=== PATIENT | male | born 1960 | race American Indian/Alaskan Native ===

== ENCOUNTER 2016-12-19 08:26 | Inpatient (IN) | payer MEDICAID ==
[2016-12-19 08:29] VITALS: BMI 28.1
[2016-12-19] MEDS ORDERED: Famotidine 20mg/50ml 50 ML IVPB STA (09:25)
[2016-12-19 09:43] LABS: ADD MANUAL DIFF? NO
[2016-12-19 09:46] LABS: BASO # 0.11 K/mm3 (0.0-2.0); BASO % 2.8 % (0.0-3.0); EOS # 0.1 (0.0-0.7); EOS % 2.8 % (1.5-5.0); GRAN # 1.43 (1.4-6.5); GRAN % 36.1 % (50.0-68.0); LYMPH # 1.8 (1.2-3.4); LYMPH % 45.1 % (22.0-35.0); MEAN CELL VOLUME 62.1 fL (80.0-105.0); MEAN PLATELET VOLUME 8.6 fl (7.0-11.0); MONO # 0.5 (0.1-0.6); MONO % 13.2 % (1.0-6.0); PLATELET COUNT 337 10^3/uL (120.0-450.0)
--- NOTE | 2016-12-19 09:46 | RAD ---
HISTORY: chest pain COMPARISON: No prior. FINDINGS: LUNGS: No active pulmonary disease. PLEURA: No significant pleural effusion identified, no pneumothorax apparent. CARDIOVASCULAR: Normal. OSSEOUS STRUCTURES: No significant abnormalities. VISUALIZED UPPER ABDOMEN: Normal. OTHER FINDINGS: None. IMPRESSION: No active disease.
[2016-12-19 09:55] LABS: HEMATOCRIT 22.1 % (42.0-52.0); INR 1.07 (0.93-1.08); PARTIAL THROMBOPLASTIN TIME 40.1 Seconds (23.7-30.8)
[2016-12-19 09:57] LABS: ALB/GLOB RATIO 1.1 (1.1-1.8); ALKALINE PHOSPHATASE 99 U/L (38-133); ALT/SGPT 43 U/L (7-56); AST/SGOT 52 U/L (15-59); BILIRUBIN,TOTAL 0.6 mg/dL (0.2-1.3); BLOOD UREA NITROGEN 12 mg/dL (7-21); CALCIUM 8.7 mg/dL (8.4-10.5); CARBON DIOXIDE 24 mmol/L (21-33); CHLORIDE 103 mmol/L (98-107); GFR AFRICAN-AMERICAN > 60; GLUCOSE,RANDOM 88 mg/dL (70-110); LIPASE 84 U/L (23-300); MAGNESIUM 1.9 mg/dL (1.7-2.2); POTASSIUM 4.1 mmol/L (3.6-5.0); SODIUM 137 mmol/L (132-148); TOTAL PROTEIN 7.9 g/dL (5.8-8.3)
[2016-12-19 10:09] LABS: TROPONIN I < 0.01 ng/mL
[2016-12-19 10:16] LABS: PH,URINE 6.5 (4.7-8.0); URINE APPEARANCE CLEAR (CLEAR); URINE BILIRUBIN NEGATIVE (NEGATIVE); URINE BLOOD NEGATIVE (NEGATIVE); URINE COLOR YELLOW (YELLOW); URINE GLUCOSE (UA) NEGATIVE (NEGATIVE); URINE KETONE NEGATIVE (NEGATIVE); URINE LEUKOCYTE ESTERASE NEGATIVE Leu/uL (NEGATIVE); URINE PROTEIN NEGATIVE mg/dL (<30 mg/dL); URINE UROBILINOGEN 0.2 E.U./dL (<1 E.U./dL)
--- NOTE | 2016-12-19 11:40 | ED PDOC ---
Arrival/HPI - General Chief Complaint: Chest Pain Time Seen by Provider: 12/19/16 08:47 Historian: Patient - History of Present Illness Narrative History of Present Illness (Text): 12/19/16 11:36 Tu Mendez is a 56 year old male, with a history of hypertension, hyperlipidemia and anemia, presents to the emergency department via ambulance complaining of 1 day duration of chest pressure and heart-burn sensation. En route, patient was given Aspirin and nitroglycerin which improved his symptoms. He also complains of mild nausea, denies vomiting or diarrhea. Denies any shortness of breath. Denies fevr, chills, headache, dizziness, urinary symptoms , or any other complaints at this time. Time/Duration: 24 hours Symptom Onset: Gradual Symptom Course: Unchanged Severity Level: Mild Activities at Onset: Light Past Medical History - Provider Review Nursing Documentation Reviewed: Yes - Cardiac Hx Cardiac Disorders: Yes - Hematological/Oncological Hx Anemia: Yes - Psychiatric Hx Substance Use: No Family/Social History - Physician Review Nursing Documentation Reviewed: Yes Family/Social History: No Known Family HX Smoking Status: Light Smoker < 10 Cigarettes Daily Hx Alcohol Use: Yes Frequency of alcohol use: Socially Hx Substance Use: No Allergies/Home Meds Allergies/Adverse Reactions: Allergies No Known Allergies Allergy (Verified 12/19/16 11:36) Home Medications: Home Meds Medication Instructions Recorded Confirmed Acetaminophen/Oxycodone Hydr 1 tab PO Q6H 12/19/16 12/19/16 [Percocet 10/325 mg Tab] Aspirin [Ecotrin] 81 mg PO DAILY 12/19/16 12/19/16 amLODIPine [Norvasc] 10 mg PO DAILY 12/19/16 12/19/16 Review of Systems - Physician Review All systems were reviewed & negative as marked: Yes - Review of Systems Constitutional: Normal. absent: Fatigue, Fevers Respiratory: absent: SOB, Cough, Sputum Cardiovascular: Chest Pain Gastrointestinal: Normal. absent: Abdominal Pain, Diarrhea, Nausea, Vomiting Neurological: Normal. absent: Headache, Dizziness Psychiatric: Normal Physical Exam Vital Signs Reviewed: Yes Vital Signs Temp Pulse Resp BP Pulse Ox 12/19/16 10:00 68 16 139/77 99 12/19/16 08:30 98.1 F 76 18 130/63 99 Temperature: Afebrile Blood Pressure: Normal Pulse: Regular Respiratory Rate: Normal Appearance: Positive for: Well-Appearing, Non-Toxic, Comfortable Pain Distress: None Mental Status: Positive for: Alert and Oriented X 3 - Systems Exam Head: Present: Atraumatic, Normocephalic Pupils: Present: PERRL Conjunctiva: Present: Normal Respiratory/Chest: Present: Clear to Auscultation, Good Air Exchange. No: Respiratory Distress, Accessory Muscle Use Cardiovascular: Present: Normal S1, S2. No: Murmurs Abdomen: Present: Tenderness (epigastric tenderness ), Normal Bowel Sounds. No : Distention, Peritoneal Signs, Rebound, Guarding Neurological: Present: GCS=15, CN II-XII Intact, Speech Normal Skin: Present: Warm, Dry, Normal Color. No: Rashes Psychiatric: Present: Alert, Oriented x 3, Normal Insight, Normal Concentration Medical Decision Making ED Course and Treatment: 12/19/16 11:41 Impression: A 56 year old male who presents to the emergency department complaining of chest pressure for past day. Differential Diagnosis include but are not limited to: Chest pain: r/o ACS vs. GERD. vs. worsening anemia. Plan: -- EKG -- Labs, cardiac enzymes -- Pepcid -- Urinalysis -- Reassess and disposition Progress Notes: 12/19/16 11:44 Hbg low. Patient signed consent for transfusion and witnessed by RN. Case discussed with Dr. Huang, hospitalist, who agrees with the plan to admit patient to hospital for transfusion. Rectal exam performed by the medical receptionist biller, which was guaiac positive. Blood transfusion consent was obtained by me and co-signed by RN. Will order 2 units. - Critical Care Critical Care Minutes: 30 minutes - Lab Interpretations Lab Results: 12/19/16 09:41 12/19/16 09:41 Lab Results 12/19/16 10:50: Blood Type Confirm O POSITIVE 12/19/16 10:29: Blood Type O POSITIVE, Antibody Screen Positive, Antibody Identification Anti S, Antigen Identification S Antigen - NEGATIVE, Crossmatch See Detail, BBK History Checked No verified bt 12/19/16 09:41: WBC 4.0 L, RBC 3.56, Hgb 6.4 L*, Hct 22.1 L, MCV 62.1 L, MCH 18.0 L, MCHC 29.0 L, RDW 17.0 H, Plt Count 337, MPV 8.6, Gran % 36.1 L, Lymph % (Auto) 45.1 H, Faulk % (Auto) 13.2 H, Eos % (Auto) 2.8, Baso % (Auto) 2.8, Gran # 1.43, Lymph # 1.8, Faulk # 0.5, Eos # 0.1, Baso # 0.11, PT 11.6, INR 1.07, APTT 40.1 H, Sodium 137, Potassium 4.1, Chloride 103, Carbon Dioxide 24, Anion Gap 14, BUN 12, Creatinine 1.1, Est GFR ( Amer) > 60, Est GFR (Non-Af Amer) > 60, Random Glucose 88, Calcium 8.7, Magnesium 1.9, Total Bilirubin 0.6, AST 52, ALT 43, Alkaline Phosphatase 99, Lactate Dehydrogenase 582, Total Creatine Kinase 302 H, CK-MB (CK-2) 1.1, CK-MB (CK-2) % Cancelled, Troponin I < 0.01, Total Protein 7.9, Albumin 4.2, Globulin 3.7, Albumin/Globulin Ratio 1.1, Lipase 84 12/19/16 09:25: Urine Color Yellow, Urine Appearance Clear, Urine pH 6.5, Ur Specific [place] 1.010, Urine Protein Negative, Urine Glucose (UA) Negative, Urine Ketones Negative, Urine Blood Negative, Urine Nitrate Negative, Urine Bilirubin Negative, Urine Urobilinogen 0.2, Ur Leukocyte Esterase Negative Interpretation: Abnormal lab values - RAD Interpretation Radiology Orders: 12/19/16 09:25 CHEST PORTABLE [RAD] Stat - Medication Orders Current Medication Orders: Sodium Chloride (Sodium Chloride 0.9%) 1,000 mls @ 100 mls/hr IV .Q10H OVI Last Admin: 12/19/16 13:00 Dose: 100 MLS/HR eMAR Start Stop Document 12/19/16 13:00 MM (Rec: 12/19/16 15:32 MM [id number]) Intravenous Solution Start Date 12/19/16 Start Time 13:30 End Date 12/20/16 End time 13:30 Total Infusion Time 1440 Lorazepam (Ativan) 1 mg IVP Q4 PRN; Protocol PRN Reason: Anxiety Ondansetron HCl (Zofran Inj) 4 mg IVP Q4H PRN PRN Reason: Nausea/Vomiting Pantoprazole Sodium (Protonix Inj) 40 mg IVP DAILY OVI Last Admin: 12/19/16 14:12 Dose: 40 MG IVP Administration Document 12/19/16 14:12 MM (Rec: 12/19/16 14:13 MM [id number]) Charges for Administration # of IVP Administrations 1 Discontinued Medications Barium Sulfate (Readi-Cat 2) Confirm Administered Dose 900 ml PO .STK-MED ONE Stop: 12/19/16 11:45 Famotidine (Pepcid 20mg/50ml Premix) 50 mls @ 100 mls/hr IVPB STAT STA Stop: 12/19/16 09:54 Last Admin: 12/19/16 09:36 Dose: 100 MLS/HR eMAR Start Stop Document 12/19/16 09:36 SZA (Rec: 12/19/16 09:37 SZA [id number]) Intravenous Solution Start Date 12/19/16 Start Time 09:36 End Date 12/19/16 End time 09:58 Total Infusion Time 22 Iohexol (Omnipaque 350 100 Ml) Confirm Administered Dose 350 mg .ROUTE .STK-MED ONE Stop: 12/19/16 13:21 Pneumococcal Polyvalent Vaccine (Pneumovax 23 Vaccine) 0.5 ml IM .ONCE ONE Stop: 12/19/16 13:35 Last Admin: 12/19/16 13:34 Dose: MAR Immunization Data Document 12/19/16 13:34 MM (Rec: 12/19/16 15:30 MM [id number]) Immunization Data Vaccine Eligibility Yes - Scribe Statement The provider has reviewed the documentation as recorded by the Bobby Maynard Provider Attestation: All medical record entries made by the Massimoibalonzo were at my direction and personally dictated by me. I have reviewed the chart and agree that the record accurately reflects my personal performance of the history, physical exam, medical decision making, and the department course for this patient. I have also personally directed, reviewed, and agree with the discharge instructions and disposition. Disposition/Present on Arrival - Present on Arrival Any Indicators Present on Arrival: No History of DVT/PE: No History of Uncontrolled Diabetes: No Urinary Catheter: No History of Decub. Ulcer: No History Surgical Site Infection Following: None - Disposition Have Diagnosis and Disposition been Completed?: Yes Diagnosis: Secondary anemia Disposition: HOSPITALIZED Disposition Time: 11:20 Patient Plan: Admission Condition: FAIR
[2016-12-19] MEDS ORDERED: Barium Sulfate Susp 2.1% w/v, 2.0% w/w 450 mL Bottle PO ONE (11:44)
--- NOTE | 2016-12-19 12:36 | CP.PCM.HP ---
<Chris Felton - Last Filed: 12/19/16 14:35> History of Present Illness - History of Present Illness History of Present Illness: CC: Chest pain HPI: Patient is a 56 y/o male with a past medical hx of HTN, hemorrhoids, anemia, hyperlipidemia, cocaine, and alcohol abuse who presents to the ED with complaint of chest pain and fatigue. He states he was on his way home early this morning and developed chest pressure and a burning sensation. He reports sitting on a bench and asking a woman to call 911. He was given Aspiring and nitroglycerine in the ambulance which alleviated his symptoms. Per patient, he has had similar symptoms in the past and he [place] [facility] [place] found [place] to be an[place]. He is a poor historian as he cannot say if he was there 3 months ago or 3 years ago. He says it was somewhere in between. He claims to have had a colonoscopy and told he has hemorrhoids and would need surgical resection; however, he did not follow up after discharge. He reports seeing his primary care physician recently but cannot say when. He states he was put on a blood thinner starting with an "L" and takes Percocet for chronic leg pain. He does report drinking alcohol last night and taking cocaine. He currently denies any fever, chills, headache, dizziness, urinary symptoms, rectal bleeding, hematemesis, or easy bleeding. He notes having dark stool for months/years. PMD: Dr. Marie Past medical hx: HTN, hemorrhoids, anemia, hyperlipidemia, cocaine, and alcohol abuse Past surgical hx: none Family hx: DM, HTN, CAD Social hx: admits to tobacco, alcohol, and cocaine abuse Allergies: NKDA Medications: Norvasc, Aspirin, and Percocet Present on Admission - Present on Admission Any Indicators Present on Admission: No Review of Systems - Constitutional Constitutional: absent: Chills, Fever, Headache - EENT Eyes: absent: Change in Vision Nose/Mouth/Throat: absent: Dysphagia, Mouth Pain - Cardiovascular Cardiovascular: absent: Chest Pain, Dyspnea, Edema - Respiratory Respiratory: absent: Cough, Dyspnea - Gastrointestinal Gastrointestinal: absent: Cramping, Diarrhea, Hematemesis, Hematochezia, Melena , Nausea, Vomiting - Genitourinary Genitourinary: absent: Dysuria, Pyuria - Musculoskeletal Musculoskeletal: absent: Numbness - Integumentary Integumentary: absent: Pruritus, Rash, Skin Pain, Wounds - Neurological Neurological: Radicular Pain (chronic leg pain). absent: Numbness, Tingling, Weakness - Psychiatric Psychiatric: absent: Anxiety, Depression Past Patient History - Infectious Disease Hx of Infectious Diseases: None - Tetanus Immunizations Tetanus Immunization: Unknown - Past Medical History & Family History Past Medical History?: Yes - Past Social History Smoking Status: Light Smoker < 10 Cigarettes Daily Alcohol: > 2 Drinks/Day Drugs: Cocaine Home Situation {Lives}: Alone - CARDIAC Hx Cardiac Disorders: Yes - HEMATOLOGICAL/ONCOLOGICAL Hx Anemia: Yes - PSYCHIATRIC Hx Substance Use: No - SURGICAL HISTORY Hx Surgeries: No Meds Allergies/Adverse Reactions: Allergies Allergy/AdvReac Type Severity Reaction Status Date / Time No Known Allergies Allergy Verified 12/19/16 11:36 Physical Exam - Constitutional Appears: Non-toxic, No Acute Distress - Head Exam Head Exam: NORMOCEPHALIC - Eye Exam Eye Exam: EOMI, Normal appearance, PERRL Pupil Exam: NORMAL ACCOMODATION, PERRL - ENT Exam ENT Exam: Mucous Membranes Moist. absent: Normal Oropharynx (poor dentition) - Neck Exam Neck exam: Positive for: Normal Inspection. Negative for: Lymphadenopathy, Tenderness, Thyromegaly - Respiratory Exam Respiratory Exam: Clear to Auscultation Bilateral, NORMAL BREATHING PATTERN. absent: Rales, Rhonchi, Wheezes - Cardiovascular Exam Cardiovascular Exam: REGULAR RHYTHM, +S1, +S2. absent: Gallop, Rubs, Systolic Murmur - GI/Abdominal Exam GI & Abdominal Exam: Normal Bowel Sounds, Soft. absent: Distended, Tenderness - Rectal Exam Rectal Exam: Black Stool, Hemorrhoids (internal and external at 3 and 9 o clock ). absent: Bloody Stool - Extremities Exam Extremities exam: Positive for: normal capillary refill, normal inspection, pedal pulses present. Negative for: pedal edema, tenderness - Back Exam Back exam: NORMAL INSPECTION. absent: rash noted, tenderness - Neurological Exam Neurological exam: Alert, CN II-XII Intact, Oriented x3 - Psychiatric Exam Psychiatric exam: Anxious - Skin Skin Exam: Dry, Intact, Warm Results - Vital Signs Recent Vital Signs: Last Vital Signs Temp 98.1 F 12/19/16 08:30 Pulse 68 12/19/16 11:31 Resp 16 12/19/16 11:31 BP 142/61 12/19/16 11:31 Pulse Ox 99 12/19/16 11:31 - Labs Result Diagrams: 12/19/16 09:41 12/19/16 09:41 Assessment & Plan - Assessment and Plan (Free Text) Assessment: Patient is a 56 y/o AA M with past medical hx of HTN, hemorrhoids, anemia, hyperlipidemia, cocaine, and alcohol abuse, who presents with chest pain/ burning and anemia with hemoglobin of 6.4. Pharmacy contacted and medications confirmed. Callout to PCP, awaiting response. Plan: 1) Chest pain r/o ACS * Cardiology consulted, help appreciated * EKG normal sinus with flattened T waves * Initial cardiac enzymes negative, F/U repeat * F/U free T4 and TSH * F/u Lipid panel * Chest x-ray shows no active disease 2) Anemia * Hgb 6.4 and HCT of 22.1 * Consent for blood products given * Transfuse 2 unites PRBC * F/U Hgb and Hct in A/M * Stool positive for occult blood * GI consulted, help appreciated * CT Abd and pelvis w PO and IV contrast * F/U Iron studies * Keep NPO for possible colonoscopy/EGD 3) HLD * F/U Lipid panel 4) HTN * BP stable * Hold Norvasc 5) Drug Abuse * F/U UDS * F/U alcohol level * monitor for withdrawal symptoms CIWA * Seizure precautions * Ativan for withdrawals * counselled on cessation 6) PPX * protnoix * zofran * anticoagulation contraindicated due to low hgb <Hossein Huang - Last Filed: 12/19/16 17:00> Results - Vital Signs Recent Vital Signs: Last Vital Signs Temp 98 F 12/19/16 16:45 Pulse 68 12/19/16 16:45 Resp 16 12/19/16 16:45 BP 151/67 H 12/19/16 16:45 Pulse Ox 99 12/19/16 11:31 - Labs Result Diagrams: 12/19/16 09:41 12/19/16 09:41 Labs: Laboratory Results - last 24 hr 12/19/16 12/19/16 14:00 15:50 Iron < 10 L TIBC 496 H % Saturation 2 L Lactate Dehydrogenase 540 Total Creatine Kinase 307 H Stool Occult Blood Positive H Alcohol, Quantitative < 10 Assessment & Plan - Assessment and Plan (Free Text) Assessment: attending note; patient seen and examined with resident in ER. Patient is alert, awake and oriented. Patient is a very poor historian. Patient is a 56 y/o AAM with past medical hx of HTN, hemorrhoids, anemia, hyperlipidemia, h/o blood Transfusion in the past, cocaine, and alcohol abuse, who presents with chest pain/burning and anemia with hemoglobin of 6.4. stool guiac positive. 2 units PRBC transfusion ordered. Apical chest pain: CE negative. cardiology evaluation requested. CT abdomen and pelvis is negative. Case discussed with GI in detail. History of [place] [facility] [place]. showed only hemorrhoids as per Patient. NO egd done. upon discharge the patient will follow-up with PMD DR. Marie. Attending/Attestation - Attestation I have personally seen and examined this patient.: Yes I have fully participated in the care of the patient.: Yes I have reviewed all pertinent clinical information: Yes
[2016-12-19] MEDS: Sodium Chloride 0.9% 1,000 ML IV SCH (13:00)
[2016-12-19] MEDS ORDERED: Iohexol 350 MG/100 ML VIAL ONE (13:20)
[2016-12-19] MEDS ORDERED: Pneumococcal 23-Valent Vaccine IM ONE (13:34)
--- NOTE | 2016-12-19 14:55 | CT ---
PROCEDURE: CT Abdomen and Pelvis with contrast HISTORY: GI bleed COMPARISON: None. TECHNIQUE: Contrast dose: 100 cc of Omni 350 Radiation dose: Total exam DLP = 402 mGy-cm. This CT exam was performed using one or more of the following dose reduction techniques: Automated exposure control, adjustment of the mA and/or kV according to patient size, and/or use of iterative reconstruction technique. FINDINGS: LOWER THORAX: Unremarkable. LIVER: Unremarkable. No gross lesion or ductal dilatation. GALLBLADDER AND BILE DUCTS: Unremarkable. PANCREAS: Unremarkable. No gross lesion or ductal dilatation. SPLEEN: Unremarkable. ADRENALS: Unremarkable. No mass. KIDNEYS AND URETERS: Unremarkable. No hydronephrosis. No solid mass. VASCULATURE: Unremarkable. No aortic aneurysm. BOWEL: Unremarkable. No obstruction. No gross mural thickening. APPENDIX: Normal appendix. PERITONEUM: Unremarkable. No free fluid. No free air. LYMPH NODES: Unremarkable. No enlarged lymph nodes. BLADDER: Unremarkable. REPRODUCTIVE: Unremarkable. BONES: No acute fracture. OTHER FINDINGS: None. IMPRESSION: Unremarkable contrast enhanced CT of the abdomen and pelvis.
[2016-12-19 16:35] LABS: IRON < 10 ug/dL (45-180)
[2016-12-19 16:55] LABS: TROPONIN I < 0.01 ng/mL
--- NOTE | 2016-12-19 20:39 | CON ---
DATE: 12/19/2016 REASON FOR CONSULTATION AND FOLLOWUP: Burning sensation in the chest. Admitted with low H and H, bl ack tarry stool. BRIEF CLINICAL HISTORY: This is a 56-year-old male with past medical history signif icant for hypertension, hemorrhoid, anemia, hyperlipidemia, history of tobacco abuse, alcohol abuse, and cocaine abuse, who developed pressure in the chest, burning sensation in the chest and in epigast rium. Called the ambulance and brought here. The patient said that 7 months ago similar symptoms, a dmitted to [facility], found to be severely anemic and had a colonoscopy done and told it was hemorrhoid, needs surgery in future. Denies any prior episode of chest pain, shortness of breath , palpitation or dyspnea on exertion. PAST HISTORY: Significant for anemia, hypertension, hemorrhoid, black tarry stool, hypertension. RECENT CARDIAC WORKUP: The patient is here first time. Denies any prior admission here, but says in [place] he had possibly echo was done, details are not available. SOCIAL HISTORY: Active tobacco abuse, half a pack cigarettes. History of alcohol abuse, history of cocaine abuse, last cocaine use 3-4 days ago. ALLERGIES: No known drug allergy. CURRENT MEDICATIONS: The patient is taking at home amlodipine, Norvasc, aspirin, and Percocet. REVIEW OF SYSTEMS: As per HPI. PHYSICAL EXAMINATION: As follows: VITAL SIGNS: Temperature afebrile, heart rate 69, blood pressure 136/74. HEENT: PERRLA. Extraocular muscles intact. NECK: Supple. No carotid bruits. No thyromegaly. CHEST: Clear to auscultation. HEART: S1, S2 regular. ABDOMEN: Soft. EXTREMITIES: Clubbing and cyanosis negative. LABORATORY DATA: WBC 4, hemoglobin 6.4, hematocrit 22.1, platelet count 337. Chemistry shows sodium 137, potassium 4.1, chloride 103, carbon dioxide 24, anion gap of 14, BUN 12, creatinine 1.1. Tropo jasmine 0.01 and 0.01, negative. IMPRESSION: Burning sensation, possibly peptic ulcer disease. Pressure in the chest could be second ajit to anemia. History of hemorrhoid according to patient. History of substance abuse. History of alcohol abuse. History of tobacco abuse. Hypertension. RECOMMENDATION: We will get echo to assess LV function. Transfuse 2 units of packed RBC. May consi mauricio endoscopy as well. The patient is complaining of leg cramps and we will give one dose of Requip. We will follow with you. Also get lipid profile, TSH, hemoglobin A1c, followup CPK, troponin. We will follow. Thank you, Dr. Huang for providing the opportunity in taking care of the patient. Reji Gorman MD cc: [id number] TT: 12/19/2016 20:39:07 Confirmation # [id number] Dictation # [id number]
[2016-12-20] MEDS: Sodium Chloride 0.9% 1,000 ML IV SCH ×2 (06:28→07:30)
[2016-12-20 07:08] LABS: BLOOD UREA NITROGEN 9 mg/dL (7-21); CALCIUM 8.4 mg/dL (8.4-10.5); CARBON DIOXIDE 26 mmol/L (21-33); CHLORIDE 106 mmol/L (98-107); CHOLESTEROL 112 mg/dL (130-200); GFR AFRICAN-AMERICAN > 60; GLUCOSE,RANDOM 84 mg/dL (70-110); MAGNESIUM 2.1 mg/dL (1.7-2.2); PHOSPHOROUS 3.3 mg/dL (2.5-4.5); SODIUM 140 mmol/L (132-148)
[2016-12-20 07:21] LABS: TROPONIN I < 0.01 ng/mL
[2016-12-20 07:27] LABS: T4 6.7 ug/dL (5.5-11.0)
[2016-12-20 07:40] LABS: THYROID STIMULATING HORMONE 1.48 mIU/mL (0.46-4.68)
[2016-12-20 08:21] LABS: HEMATOCRIT 25.3 % (42.0-52.0); MEAN CELL VOLUME 66.1 fL (80.0-105.0); MEAN CORPUSCULAR HEMOGLOBIN 20.1 pg (25.0-35.0); MEAN CORPUSCULAR HGB CONC 30.4 g/dl (31.0-37.0); MEAN PLATELET VOLUME 9.1 fl (7.0-11.0); RED CELL DISTRIBUTION WIDTH 19.9 % (11.5-14.5); WHITE BLOOD COUNT 3.4 10^3/ul (4.5-11.0)
--- NOTE | 2016-12-20 10:20 | CON ---
DATE: 12/20/2016 GASTROENTEROLOGY CONSULTATION REQUESTING PHYSICIAN: Hossein Huang MD. REASON FOR CONSULTATION: I have been asked to see this 56-year-old male with a history of recurrent severe anemia, history of cocaine and alcohol use, history of hypertension and hemorrhoids who comes to the hospital with increasing chest pressure. In the Emergency Room, he was found to be profoundly anemic with a hemoglobin in the 6 gram range. He was also noted to be iron deficient with an iron s aturation of only 2%. The patient has had chronic rectal bleeding from hemorrhoids. He had a colono scopy in the [facility] in 10/2015, which showed hemorrhoids and anal fissure, and mil d nonspecific left-sided colitis. The patient is a chronic alcoholic and uses cocaine. He also smok es less than a half pack a day. PAST MEDICAL HISTORY: As above. Again, he has a history of chronic recurrent anemia, hemorrhoids, h ypertension, hyperlipidemia, cocaine and alcohol use. SOCIAL HISTORY: As above. FAMILY HISTORY: Noncontributory. REVIEW OF SYSTEMS: A 14-point review of systems is positive for chest pain, rectal bleeding, and wea kness. PHYSICAL EXAMINATION: GENERAL: Middle-aged male walking around in his room in no acute distress. VITAL SIGNS: Reveal temperature of 98.7, blood pressure 133/72, heart rate 63. HEENT: Reveals sclerae to be white, conjunctivae pale. NECK: Supple. CHEST: Reveals lungs to be clear. HEART: Reveals a regular rate and rhythm. ABDOMEN: Soft, nontender. EXTREMITIES: Show no edema. LABORATORY DATA: Reveal white blood cell count 3.4, hemoglobin 7.7. Stool was positive for occult b lood. Chemistries reveal normal electrolytes. IMPRESSION: A 56-year-old male with recurrent severe anemia, admitted to the hospital with chest nataliia n. His troponins were all negative. He has chronic bleeding hemorrhoids. RECOMMENDATIONS: 1. Transfuse packed red blood cells to a hematocrit of 27-30%. Continue IV PPI. 2. Iron infusions. 3. I will schedule the patient for an upper endoscopy for the morning. Nguyễn Oscar MD cc: [id number] TT: 12/20/2016 10:19:34 Confirmation # [id number] Dictation # [id number]
--- NOTE | 2016-12-20 11:27 | CP.PCM.PN ---
<Chris Felton - Last Filed: 12/20/16 15:32> Subjective - Date & Time of Evaluation Date of Evaluation: 12/20/16 Time of Evaluation: 07:30 - Subjective Subjective: Dr. Felton PGY 1 Hospitalist Note Patient seen and evaluated at bedside. He states his chest pain has resolved. He reports having some fatigue but denies any fever, chills, nausea, vomiting, diarrhea, or SOB. He says he has not had a bowel movement today and denies any rectal pain when he does have bowel moments. He currently is resting comfortably and says he would like some food. No adverse events per nursing. Objective - Vital Signs/Intake and Output Vital Signs (last 24 hours): Temp Pulse Resp BP Pulse Ox 98.7 F 63 18 133/72 99 12/20/16 06:00 12/20/16 06:00 12/20/16 06:00 12/20/16 06:00 12/20/16 06:00 Intake and Output: 12/20/16 12/20/16 06:59 18:59 Intake Total 1887 Output Total 650 Balance 1237 - Medications Medications: Current Medications Sodium Chloride (Sodium Chloride 0.9%) 1,000 mls @ 100 mls/hr IV .Q10H [facility] Last Admin: 12/20/16 06:28 Dose: 100 mls/hr Lorazepam (Ativan) 1 mg IVP Q4 PRN; Protocol PRN Reason: Anxiety Ondansetron HCl (Zofran Inj) 4 mg IVP Q4H PRN PRN Reason: Nausea/Vomiting Pantoprazole Sodium (Protonix Inj) 40 mg IVP DAILY [facility] Last Admin: 12/19/16 14:12 Dose: 40 mg - Labs Labs: 12/20/16 05:30 12/20/16 05:30 PT 11.6 Seconds (9.9-11.8) 12/19/16 09:41 INR 1.07 (0.93-1.08) 12/19/16 09:41 APTT 40.1 Seconds (23.7-30.8) H 12/19/16 09:41 - Constitutional Appears: Non-toxic, No Acute Distress - Head Exam Head Exam: ATRAUMATIC, NORMOCEPHALIC - Eye Exam Eye Exam: EOMI, Normal appearance, PERRL Pupil Exam: NORMAL ACCOMODATION, PERRL - ENT Exam ENT Exam: Mucous Membranes Moist. absent: Normal Oropharynx (poor dentition) - Respiratory Exam Respiratory Exam: Clear to Ausculation Bilateral, NORMAL BREATHING PATTERN. absent: Rales, Rhonchi, Wheezes - Cardiovascular Exam Cardiovascular Exam: REGULAR RHYTHM, +S1, +S2. absent: Gallop, Rubs, Murmur - GI/Abdominal Exam GI & Abdominal Exam: Soft, Normal Bowel Sounds. absent: Tenderness - Extremities Exam Extremities Exam: Normal Inspection. absent: Pedal Edema, Tenderness - Back Exam Back Exam: NORMAL INSPECTION. absent: rash noted, tenderness - Neurological Exam Neurological Exam: Alert, Awake, CN II-XII Intact, Oriented x3 - Psychiatric Exam Psychiatric exam: Normal Affect, Normal Mood - Skin Skin Exam: Dry, Intact, Warm Assessment and Plan - Assessment and Plan (Free Text) Assessment: Patient is a 56 y/o AA M with past medical hx of HTN, hemorrhoids, anemia, hyperlipidemia, cocaine, and alcohol abuse, who presents with chest pain/ burning and anemia with hemoglobin of 6.4. Pharmacy contacted and medications confirmed. Symptoms improved with blood transfusion. Plan: 1) Chest pain r/o ACS * Cardiology consulted, help appreciated * EKG normal sinus with flattened T waves * Cardiac enzymes negative x3 * Free T4 and TSH wnl * Lipid panel wnl * Chest x-ray shows no active disease * Likely caused by anemia. * F/U echo 2) Anemia * Hgb 6.4 and HCT of 22.1 on admission * Consent for blood products given * Transfuse 2 units PRBC * Repeat Hgb 7.7 and Hct 25.3 * Will transfuse another 2 units * Stool positive for occult blood * GI consulted, help appreciated * CT Abd and pelvis w PO and IV contrast unremarkable [see full report] * Iron studies show chronic iron deficiency: Iron<10, TIBC 496. 2% Sat * EGD scheduled for tomorrow, keep NPO after midnight. 3) HLD * Lipid panel wnl 4) HTN * BP stable * Hold Norvasc 5) Drug Abuse * UDS positive for cocaine * alcohol level wnl * monitor for withdrawal symptoms CIWA * Seizure precautions * Ativan for withdrawals * counselled on cessation 6) PPX * protnoix * zofran * anticoagulation contraindicated due to low hgb <Rangasamy,Ajantha - Last Filed: 12/20/16 16:16> Objective - Vital Signs/Intake and Output Vital Signs (last 24 hours): Temp Pulse Resp BP Pulse Ox 98.9 F 52 L 18 130/72 99 12/20/16 15:50 12/20/16 15:50 12/20/16 15:50 12/20/16 15:50 12/20/16 06:00 Intake and Output: 12/20/16 12/20/16 06:59 18:59 Intake Total 1887 0 Output Total 650 Balance 1237 0 - Medications Medications: Current Medications Sodium Chloride (Sodium Chloride 0.9%) 1,000 mls @ 100 mls/hr IV .Q10H [facility] Last Admin: 12/20/16 07:30 Dose: 100 mls/hr Lorazepam (Ativan) 1 mg IVP Q4 PRN; Protocol PRN Reason: Anxiety Ondansetron HCl (Zofran Inj) 4 mg IVP Q4H PRN PRN Reason: Nausea/Vomiting Pantoprazole Sodium (Protonix Inj) 40 mg IVP DAILY [facility] Last Admin: 12/20/16 10:00 Dose: 40 mg - Labs Labs: 12/20/16 05:30 12/20/16 05:30 PT 11.6 Seconds (9.9-11.8) 12/19/16 09:41 INR 1.07 (0.93-1.08) 12/19/16 09:41 APTT 40.1 Seconds (23.7-30.8) H 12/19/16 09:41 Assessment and Plan - Assessment and Plan (Free Text) Assessment: attending note; patient seen and examined with resident. Patient is alert, awake and oriented. Patient is a 56 y/o AAM with past medical hx of HTN, hemorrhoids, anemia, hyperlipidemia, h/o blood Transfusion in the past, cocaine, and alcohol abuse, who presents with chest pain/SOB on exertion and anemia with hemoglobin of 6.4. stool guiac positive. got 2 units PRBC transfusion yesterday. hemoglobin is 7.7 today. 2 units PRBC transfusion ordered. Apical chest pain: CE negative. cardiology evaluation appreciated. cocaine/alcohol abuse. complete cessation is strongly advised. active smoking; smoking cessation is strongly advised. CT abdomen and pelvis is negative. Case discussed with GI in detail. Plan for EGD tomorrow. History of previous colonoscopy at [facility] [place]. Showed anal fissure and internal Haemorrhoid. clear liquid diet today. NPO past midnight for colonoscopy. upon discharge the patient will follow-up with PMD DR. Marie. Attending/Attestation - Attestation I have personally seen and examined this patient.: Yes I have fully participated in the care of the patient.: Yes I have reviewed all pertinent clinical information, including history, physical exam and plan: Yes
--- NOTE | 2016-12-20 16:23 | PN ---
DATE: 12/20/2016 REASON FOR CONSULTATION AND FOLLOWUP: Burning sensation in the chest, admitted with low H and H, tiffanie ck tarry stool. BRIEF CLINICAL HISTORY: This is a 56-year-old -[place] male with past medical history signif icant for hypertension, hemorrhoid, anemia, hyperlipidemia, history of tobacco abuse, alcohol abuse a nd cocaine abuse, who developed pressure-like sensation, burning sensation in the chest and epigastri c area. Called the ambulance and was brought here. Admitting hemoglobin was 6. The patient got 2 u nits of RBCs. Denies any chest pain, shortness of breath, any palpitation. PHYSICAL EXAMINATION: VITAL SIGNS: Temperature afebrile, heart rate 52, blood pressure 130/72. HEENT: PERRLA. Extraocular muscles intact. NECK: Supple. No carotid bruits. No thyromegaly. CHEST: Clear to auscultation. HEART: S1, S2 regular. ABDOMEN: Soft. EXTREMITIES: Clubbing and cyanosis negative. BLOOD WORKUP: WBC 3.4, hemoglobin 7.7, hematocrit 25.3, platelet count 306. Chemistry shows sodium 140, potassium 4, chloride 106, carbon dioxide 26, anion gap of 12, BUN 9, creatinine 1.1. IMPRESSION: Severe anemia; burning sensation, most likely secondary to anemia as well as epigastric pain. No evidence of acute coronary syndrome, no evidence of nbt-FW-[id number] myocardial infarction, n o evidence of heart attack. History of hemorrhoid. Drop in hemoglobin and hematocrit. RECOMMENDATION: The patient is cleared to go for endoscopy and colonoscopy from cardiology point of view. Once the endoscopy and colonoscopy is cleared, may consider a stress test when the hemoglobin is 10 or above or as an outpatient. In the interim, continue aggressive medical treatment. Keep hem oglobin around 10. TSH is within normal limit. Lipid profile is within normal limit. Total cholest emili 112, LDL 52, HDL 53. Low risk of coronary artery disease. Will follow with echo. Thank you, Dr. Huang, for providing the opportunity in taking care of this patient. We will disco ntinue telemetry. Reji Gorman MD cc: [id number] TT: 12/20/2016 16:22:49 Confirmation # [id number] Dictation # [id number] mn
--- NOTE | 2016-12-20 18:10 | CARD ---
APPROVED REPORT EKG Measurement Heart [id number] <Conclusion> Normal sinus rhythm Nonspecific T wave abnormality Prolonged QT Abnormal ECG
--- NOTE | 2016-12-20 19:30 | CARD ---
APPROVED REPORT EXAM: Two-dimensional and M-mode echocardiogram with Doppler and color Doppler. INDICATION LV Function:SystolicDiastolic Chest Pain 2D DIMENSIONS Left Atrium (2D)4.4 (1.6-4.0cm)IVSd1.2 (0.7-1.1cm) LVDd4.9 (3.9-5.9cm)PWd1.2 (0.7-1.1cm) LVDs3.3 (2.5-4.0cm)FS (%) 32.8 % LVEF (%)61.1 (>50%) M-Mode DIMENSIONS Aortic Root2.60 (2.2-3.7cm)Aortic Cusp Exc.1.30 (1.5-2.0cm) Aortic Valve AoV Peak Njtresxi581.0cm/[place] GR.12mmHg Mitral Valve MV E Gurmraso926.0cm/sMV A Dndpryaq67.7cm/sE/A ratio1.4 TDI E/Lateral E'0.0E/Medial E'0.0 Tricuspid Valve TR Peak [id number]/sRAP [id number] Peak Gr.11mmHg [id number] LEFT VENTRICLE The left ventricle is normal size. There is mild to moderate concentric left ventricular hypertrophy. The left ventricular function is normal.EF-55-60% There is normal LV segmental wall motion. The left ventricular diastolic function is normal. No left ventricle thrombus noted on this study. There is no ventricular septal defect visualized. There is no left ventricular aneurysm. There is no mass noted in the left ventricle. RIGHT VENTRICLE The right ventricle is normal size. There is normal right ventricular wall thickness. The right ventricular systolic function is normal. ATRIA The left atrium is mildly dilated. The right atrium size is normal. The atrial septum is aneurysmal. AORTIC VALVE The aortic valve is thickened but opens well. The aortic valve is mildly sclerotic. No aortic regurgitation is present. There is no aortic valvular stenosis. There is no aortic valvular vegetation. MITRAL VALVE The mitral valve is thickened but opens well. Mitral regurgitation is mild to moderate. There is no mitral valve stenosis. There is no evidence of mitral valve prolapse. TRICUSPID VALVE The tricuspid valve leaflets are thickened , but open well. There is trace tricuspid regurgitation.RVSP-21 mmof Hg. There is no tricuspid valve stenosis. There is no tricuspid valve prolapse or vegetation. PULMONIC VALVE The pulmonary valve is normal in structure. There is no pulmonic valvular regurgitation. There is no pulmonic valvular stenosis. GREAT VESSELS The aortic root is normal in size. The ascending aorta is normal in size. The pulmonary artery is normal. The IVC is normal in size and collapses >50% with inspiration. PERICARDIAL EFFUSION There is no pleural effusion. There is no pericardial effusion. <Conclusion> The left ventricle is normal size. There is mild to moderate concentric left ventricular hypertrophy. The left ventricular function is normal.EF-55-60% No aortic regurgitation is present. Mitral regurgitation is mild to moderate. There is trace tricuspid regurgitation.RVSP-21 mmof Hg.
[2016-12-21] MEDS: Sodium Chloride 0.9% 1,000 ML IV SCH ×2 (05:48)
[2016-12-21 06:38] LABS: BASO # 0.07 K/mm3 (0.0-2.0); BASO % 1.6 % (0.0-3.0); EOS # 0.3 (0.0-0.7); EOS % 6.5 % (1.5-5.0); GRAN # 1.77 (1.4-6.5); HEMATOCRIT 32.1 % (42.0-52.0); LYMPH # 1.9 (1.2-3.4); LYMPH % 42.4 % (22.0-35.0); MEAN CELL VOLUME 68.6 fL (80.0-105.0); MEAN CORPUSCULAR HEMOGLOBIN 21.4 pg (25.0-35.0); MEAN CORPUSCULAR HGB CONC 31.2 g/dl (31.0-37.0); MEAN PLATELET VOLUME 8.9 fl (7.0-11.0); MONO # 0.4 (0.1-0.6); MONO % 9.5 % (1.0-6.0); PLATELET COUNT 270 10^3/uL (120.0-450.0)
[2016-12-21 06:46] LABS: ADD MANUAL DIFF? NO; WHITE BLOOD COUNT 4.4 10^3/ul (4.5-11.0)
[2016-12-21 07:04] LABS: BLOOD UREA NITROGEN 5 mg/dL (7-21); CALCIUM 8.6 mg/dL (8.4-10.5); CARBON DIOXIDE 25 mmol/L (21-33); CHLORIDE 107 mmol/L (98-107); GFR AFRICAN-AMERICAN > 60; GLUCOSE,RANDOM 102 mg/dL (70-110); POTASSIUM 4.1 mmol/L (3.6-5.0); SODIUM 138 mmol/L (132-148)
[2016-12-21] MEDS ORDERED: Propofol 10 mg/ml Inj (20 ML) ONE ×2 (07:46→08:07)
[2016-12-21] MEDS ORDERED: Lidocaine 1% Inj (20ml) ONE (07:46)
[2016-12-21 07:56] VITALS: RESP 17
[2016-12-21] MEDS ORDERED: Glucagon Recombinant 1 mg Inj ONE (08:09)
[2016-12-21] MEDS ORDERED: Glucagon Recombinant 1 mg Inj IV ONE (08:10)
[2016-12-21 08:56] VITALS: TEMP 98.2
[2016-12-21] MEDS ORDERED: Sodium Chloride 0.9% 1,000 ML IV SCH (09:00)
[2016-12-21] MEDS ORDERED: HYDROmorphone 0.5 mg/0.5 ml ISec IVP STA (09:04)
[2016-12-21] MEDS ORDERED: HYDROmorphone 0.5 mg/0.5 ml ISec IVP ONE (09:08)
[2016-12-21 09:42] VITALS: O2SAT 95
[2016-12-21 09:48] VITALS: BP 138/73; PULSE 62
--- NOTE | 2016-12-21 14:20 | CP.PCM.DIS ---
<Chris Felton - Last Filed: 12/21/16 17:00> Provider - Provider Date of Admission: 12/19/16 10:53 Attending physician: Hossein Huang MD Primary care physician: Roberto Marie MD Consults: Dr. Nguyễn Gorman Time Spent in preparation of Discharge (in minutes): 35 Diagnosis - Discharge Diagnosis (1) Ulcer Status: Acute (2) Cocaine abuse Status: Acute Hospital Course - Lab Results Lab Results: Most Recent Lab Values WBC 4.4 10^3/ul (4.5-11.0) L D 12/21/16 06:20 RBC 4.68 10^6/uL (3.5-6.1) 12/21/16 06:20 Hgb 10.0 gm/dL (14.0-18.0) L 12/21/16 06:20 Hct 32.1 % (42.0-52.0) L 12/21/16 06:20 MCV 68.6 fL (80.0-105.0) L 12/21/16 06:20 MCH 21.4 pg (25.0-35.0) L 12/21/16 06:20 MCHC 31.2 g/dl (31.0-37.0) 12/21/16 06:20 RDW 21.0 % (11.5-14.5) H 12/21/16 06:20 Plt Count 270 10^3/uL (120.0-450.0) 12/21/16 06:20 MPV 8.9 fl (7.0-11.0) 12/21/16 06:20 Gran % 40.0 % (50.0-68.0) L 12/21/16 06:20 Lymph % (Auto) 42.4 % (22.0-35.0) H 12/21/16 06:20 [place] % (Auto) 9.5 % (1.0-6.0) H 12/21/16 06:20 Eos % (Auto) 6.5 % (1.5-5.0) H 12/21/16 06:20 Baso % (Auto) 1.6 % (0.0-3.0) 12/21/16 06:20 Gran # 1.77 (1.4-6.5) 12/21/16 06:20 Lymph # 1.9 (1.2-3.4) 12/21/16 06:20 [place] # 0.4 (0.1-0.6) 12/21/16 06:20 Eos # 0.3 (0.0-0.7) 12/21/16 06:20 Baso # 0.07 K/mm3 (0.0-2.0) 12/21/16 06:20 PT 11.6 Seconds (9.9-11.8) 12/19/16 09:41 INR 1.07 (0.93-1.08) 12/19/16 09:41 APTT 40.1 Seconds (23.7-30.8) H 12/19/16 09:41 Sodium 138 mmol/L (132-148) 12/21/16 06:20 Potassium 4.1 mmol/L (3.6-5.0) 12/21/16 06:20 Chloride 107 mmol/L (98-107) 12/21/16 06:20 Carbon Dioxide 25 mmol/L (21-33) 12/21/16 06:20 Anion Gap 10 (10-20) 12/21/16 06:20 BUN 5 mg/dL (7-21) L 12/21/16 06:20 Creatinine 1.0 mg/dL (0.5-1.4) 12/21/16 06:20 Est GFR ( Amer) > 60 12/21/16 06:20 Est GFR (Non-Af Amer) > 60 12/21/16 06:20 Random Glucose 102 mg/dL (70-110) 12/21/16 06:20 Calcium 8.6 mg/dL (8.4-10.5) 12/21/16 06:20 Phosphorus 3.3 mg/dL (2.5-4.5) 12/20/16 05:30 Magnesium 2.1 mg/dL (1.7-2.2) 12/20/16 05:30 Iron < 10 ug/dL (45-180) L 12/19/16 15:50 TIBC 496 ug/dL (261-462) H 12/19/16 15:50 % Saturation 2 % (20-55) L 12/19/16 15:50 Ferritin 4.5 ng/mL 12/19/16 15:50 Total Bilirubin 0.6 mg/dL (0.2-1.3) 12/19/16 09:41 AST 52 U/L (15-59) 12/19/16 09:41 ALT 43 U/L (7-56) 12/19/16 09:41 Alkaline Phosphatase 99 U/L (38-133) 12/19/16 09:41 Lactate Dehydrogenase 567 U/L (333-699) 12/20/16 05:30 Total Creatine Kinase 240 U/L (35-230) H 12/20/16 05:30 CK-MB (CK-2) 1.0 ng/mL (0.0-3.6) 12/20/16 05:30 CK-MB (CK-2) % Cancelled 12/19/16 09:41 Troponin I < 0.01 ng/mL 12/20/16 05:30 Total Protein 7.9 g/dL (5.8-8.3) 12/19/16 09:41 Albumin 4.2 g/dL (3.0-4.8) 12/19/16 09:41 Globulin 3.7 gm/dL 12/19/16 09:41 Albumin/Globulin Ratio 1.1 (1.1-1.8) 12/19/16 09:41 Triglycerides 72 mg/dL (35-160) 12/20/16 05:30 Cholesterol 112 mg/dL (130-200) L 12/20/16 05:30 LDL Cholesterol Direct 52 mg/dL (0-129) 12/20/16 05:30 HDL Cholesterol 35 mg/dL (29-60) 12/20/16 05:30 Lipase 84 U/L (23-300) 12/19/16 09:41 Thyroxine (T4) 6.7 ug/dL (5.5-11.0) 12/20/16 05:30 TSH 3rd Generation 1.48 mIU/mL (0.46-4.68) 12/20/16 05:30 Urine Color Yellow (YELLOW) 12/19/16 09:25 Urine Appearance Clear (CLEAR) 12/19/16 09:25 Urine pH 6.5 (4.7-8.0) 12/19/16 09:25 Ur Specific [place] 1.010 (1.005-1.035) 12/19/16 09:25 Urine Protein Negative mg/dL (<30 mg/dL) 12/19/16 09:25 Urine Glucose (UA) Negative mg/dL (NEGATIVE) 12/19/16 09:25 Urine Ketones Negative mg/dL (NEGATIVE) 12/19/16 09:25 Urine Blood Negative (NEGATIVE) 12/19/16 09:25 Urine Nitrate Negative (NEGATIVE) 12/19/16 09:25 Urine Bilirubin Negative (NEGATIVE) 12/19/16 09:25 Urine Urobilinogen 0.2 E.U./dL (<1 E.U./dL) 12/19/16 09:25 Ur Leukocyte Esterase Negative Dorie/uL (NEGATIVE) 12/19/16 09:25 Stool Occult Blood Positive (NEGATIVE) H 12/19/16 14:00 Urine Opiates Screen Negative (NEGATIVE) 12/20/16 00:45 Urine Methadone Screen Negative (NEGATIVE) 12/20/16 00:45 Ur Barbiturates Screen Negative (NEGATIVE) 12/20/16 00:45 Ur Phencyclidine Scrn Negative (NEGATIVE) 12/20/16 00:45 Ur Amphetamines Screen Negative (NEGATIVE) 12/20/16 00:45 U Benzodiazepines Scrn Negative (NEGATIVE) 12/20/16 00:45 U Oth Cocaine Metabols Positive (NEGATIVE) H 12/20/16 00:45 U Cannabinoids Screen Negative (NEGATIVE) 12/20/16 00:45 Alcohol, Quantitative < 10 mg/dL (0-10) 12/19/16 15:50 Blood Type O POSITIVE 12/19/16 10:29 Blood Type Confirm O POSITIVE 12/19/16 10:50 Antibody Screen Positive 12/19/16 10:29 Antibody Identification Anti S 12/19/16 10:29 Antigen Identification S Antigen - NEGATIVE 12/19/16 10:29 Crossmatch See Detail 12/19/16 10:29 BBK History Checked No verified bt 12/19/16 10:29 - Hospital Course Hospital Course: HPI: Patient is a 56 y/o male with a past medical hx of HTN, hemorrhoids, anemia, hyperlipidemia, cocaine, and alcohol abuse who presents to the ED with complaint of chest pain and fatigue. He states he was on his way home early this morning and developed chest pressure and a burning sensation. He reports sitting on a bench and asking a woman to call 911. He was given Aspiring and nitroglycerine in the ambulance which alleviated his symptoms. Per patient, he has had similar symptoms in the past and he was admitted to [facility] where they found him to be anemic. He is a poor historian as he cannot say if he was there 3 months ago or 3 years ago. He says it was somewhere in between. He claims to have had a colonoscopy and told he has hemorrhoids and would need surgical resection; however, he did not follow up after discharge. He reports seeing his primary care physician recently but cannot say when. He states he was put on a blood thinner starting with an "L" and takes Percocet for chronic leg pain. He does report drinking alcohol last night and taking cocaine. He currently denies any fever, chills, headache, dizziness, urinary symptoms, rectal bleeding, hematemesis, or easy bleeding. He notes having dark stool for months/years. Patient is a 56 y/o AA M who presented with chest pain and fatigue. The patient was found to be anemic with a hemoglobin of 6.4. An initial chest x ray showed no active disease. His initial EKG showed normal sinus rhythm. Cardiac enzymes were negative x3. His urine drug screen was positive for cocaine. An iron study was performed showing chronic iron deficiency: Iron<10, TIBC 496. 2% Sat. A CT Abd and pelvis w PO and IV contrast was unremarkable. He complained of dark stool and was found to be guiac positive. GI and cardiology were consulted. An Echocardio gram was performed showing: the left ventricle normal size with a normal EF of 55-60%. He was transfused 4 units of blood. An EGD was performed which yeilded a non-obstructing schatzki ring, small hiatal hernia, gastric ulcer, non-bleeding erosive gastropathy, and three bleeding angiodysplastic lesions in the duodenum. The patient's diet was advanced and he was medically cleared for discharge. He was discharged with prescription for Omeprazole. He was told to resume home medications and take as prescribed; follow up with your primary care physician and GI physician within a week of discharge; refrain from alcohol, tobacco, or drug use;advance diet slowly and eat soft foods; and if your condition worsens or new symptoms arise, please return to the emergency room. The patient verbalized understanding and was discharged home. This is a brief summary of the patient's stay at this facility. For more detail , see patient's full chart. - Date & Time of H&P Date of H&P: 12/19/16 Time of H&P: 12:29 Discharge Exam - Head Exam Head Exam: ATRAUMATIC, NORMOCEPHALIC - Eye Exam Eye Exam: EOMI, Normal appearance, PERRL Pupil Exam: NORMAL ACCOMODATION, PERRL - ENT Exam ENT Exam: Mucous Membranes Moist - Respiratory Exam Respiratory Exam: Clear to PA & Lateral, NORMAL BREATHING PATTERN. absent: Rales, Rhonchi, Wheezes - Cardiovascular Exam Cardiovascular Exam: REGULAR RHYTHM, +S1, +S2. absent: Gallop, Rubs, Systolic Murmur - GI/Abdominal Exam GI & Abdominal Exam: Normal Bowel Sounds, Soft. absent: Distended, Guarding, Tenderness - Extremities Exam Extremities exam: normal capillary refill, normal inspection, pedal pulses present - Back Exam Back exam: NORMAL INSPECTION. absent: rash noted, tenderness - Neurological Exam Neurological exam: Alert, CN II-XII Intact, Oriented x3 - Psychiatric Exam Psychiatric exam: Normal Affect, Normal Mood - Skin Skin Exam: Dry, Intact, Warm Discharge Plan - Discharge Medications Prescriptions: Omeprazole 40 mg PO DAILY #30 capsule.dr - Follow Up Plan Condition: FAIR Disposition: HOME/ ROUTINE Instructions: Iron Rich Diet (DC), Cocaine Abuse (DC), Iron Deficiency Anemia ( DC) Additional Instructions: 1) You are medically stable for discharge with prescription for Omeprazole. 2) Please resume home medications and take as prescribed. 3) Follow up with your primary care physician and GI physician within a week of discharge. 4) Please refrain from alcohol, tobacco, or drug use. 5) Advance diet slowly and eat soft foods. 6) If your condition worsens or new symptoms arise, please return to the emergency room. Referrals: Roberto Marie MD [Primary Care Provider] - Nguyễn Oscar MD [Staff Provider] - <Hossein Huang - Last Filed: 12/22/16 10:37> Provider - Provider Date of Admission: 12/19/16 10:53 Attending physician: Hossein Huang MD Primary care physician: Roberto Marie MD Time Spent in preparation of Discharge (in minutes): 35 Hospital Course - Lab Results Lab Results: Most Recent Lab Values WBC 4.4 10^3/ul (4.5-11.0) L D 12/21/16 06:20 RBC 4.68 10^6/uL (3.5-6.1) 12/21/16 06:20 Hgb 10.0 gm/dL (14.0-18.0) L 12/21/16 06:20 Hct 32.1 % (42.0-52.0) L 12/21/16 06:20 MCV 68.6 fL (80.0-105.0) L 12/21/16 06:20 MCH 21.4 pg (25.0-35.0) L 12/21/16 06:20 MCHC 31.2 g/dl (31.0-37.0) 12/21/16 06:20 RDW 21.0 % (11.5-14.5) H 12/21/16 06:20 Plt Count 270 10^3/uL (120.0-450.0) 12/21/16 06:20 MPV 8.9 fl (7.0-11.0) 12/21/16 06:20 Gran % 40.0 % (50.0-68.0) L 12/21/16 06:20 Lymph % (Auto) 42.4 % (22.0-35.0) H 12/21/16 06:20 [place] % (Auto) 9.5 % (1.0-6.0) H 12/21/16 06:20 Eos % (Auto) 6.5 % (1.5-5.0) H 12/21/16 06:20 Baso % (Auto) 1.6 % (0.0-3.0) 12/21/16 06:20 Gran # 1.77 (1.4-6.5) 12/21/16 06:20 Lymph # 1.9 (1.2-3.4) 12/21/16 06:20 [place] # 0.4 (0.1-0.6) 12/21/16 06:20 Eos # 0.3 (0.0-0.7) 12/21/16 06:20 Baso # 0.07 K/mm3 (0.0-2.0) 12/21/16 06:20 PT 11.6 Seconds (9.9-11.8) 12/19/16 09:41 INR 1.07 (0.93-1.08) 12/19/16 09:41 APTT 40.1 Seconds (23.7-30.8) H 12/19/16 09:41 Sodium 138 mmol/L (132-148) 12/21/16 06:20 Potassium 4.1 mmol/L (3.6-5.0) 12/21/16 06:20 Chloride 107 mmol/L (98-107) 12/21/16 06:20 Carbon Dioxide 25 mmol/L (21-33) 12/21/16 06:20 Anion Gap 10 (10-20) 12/21/16 06:20 BUN 5 mg/dL (7-21) L 12/21/16 06:20 Creatinine 1.0 mg/dL (0.5-1.4) 12/21/16 06:20 Est GFR ( Amer) > 60 12/21/16 06:20 Est GFR (Non-Af Amer) > 60 12/21/16 06:20 Random Glucose 102 mg/dL (70-110) 12/21/16 06:20 Calcium 8.6 mg/dL (8.4-10.5) 12/21/16 06:20 Phosphorus 3.3 mg/dL (2.5-4.5) 12/20/16 05:30 Magnesium 2.1 mg/dL (1.7-2.2) 12/20/16 05:30 Iron < 10 ug/dL (45-180) L 12/19/16 15:50 TIBC 496 ug/dL (261-462) H 12/19/16 15:50 % Saturation 2 % (20-55) L 12/19/16 15:50 Ferritin 4.5 ng/mL 12/19/16 15:50 Total Bilirubin 0.6 mg/dL (0.2-1.3) 12/19/16 09:41 AST 52 U/L (15-59) 12/19/16 09:41 ALT 43 U/L (7-56) 12/19/16 09:41 Alkaline Phosphatase 99 U/L (38-133) 12/19/16 09:41 Lactate Dehydrogenase 567 U/L (333-699) 12/20/16 05:30 Total Creatine Kinase 240 U/L (35-230) H 12/20/16 05:30 CK-MB (CK-2) 1.0 ng/mL (0.0-3.6) 12/20/16 05:30 CK-MB (CK-2) % Cancelled 12/19/16 09:41 Troponin I < 0.01 ng/mL 12/20/16 05:30 Total Protein 7.9 g/dL (5.8-8.3) 12/19/16 09:41 Albumin 4.2 g/dL (3.0-4.8) 12/19/16 09:41 Globulin 3.7 gm/dL 12/19/16 09:41 Albumin/Globulin Ratio 1.1 (1.1-1.8) 12/19/16 09:41 Triglycerides 72 mg/dL (35-160) 12/20/16 05:30 Cholesterol 112 mg/dL (130-200) L 12/20/16 05:30 LDL Cholesterol Direct 52 mg/dL (0-129) 12/20/16 05:30 HDL Cholesterol 35 mg/dL (29-60) 12/20/16 05:30 Lipase 84 U/L (23-300) 12/19/16 09:41 Thyroxine (T4) 6.7 ug/dL (5.5-11.0) 12/20/16 05:30 TSH 3rd Generation 1.48 mIU/mL (0.46-4.68) 12/20/16 05:30 Urine Color Yellow (YELLOW) 12/19/16 09:25 Urine Appearance Clear (CLEAR) 12/19/16 09:25 Urine pH 6.5 (4.7-8.0) 12/19/16 09:25 Ur Specific [place] 1.010 (1.005-1.035) 12/19/16 09:25 Urine Protein Negative mg/dL (<30 mg/dL) 12/19/16 09:25 Urine Glucose (UA) Negative mg/dL (NEGATIVE) 12/19/16 09:25 Urine Ketones Negative mg/dL (NEGATIVE) 12/19/16 09:25 Urine Blood Negative (NEGATIVE) 12/19/16 09:25 Urine Nitrate Negative (NEGATIVE) 12/19/16 09:25 Urine Bilirubin Negative (NEGATIVE) 12/19/16 09:25 Urine Urobilinogen 0.2 E.U./dL (<1 E.U./dL) 12/19/16 09:25 Ur Leukocyte Esterase Negative Dorie/uL (NEGATIVE) 12/19/16 09:25 Stool Occult Blood Positive (NEGATIVE) H 12/19/16 14:00 Urine Opiates Screen Negative (NEGATIVE) 12/20/16 00:45 Urine Methadone Screen Negative (NEGATIVE) 12/20/16 00:45 Ur Barbiturates Screen Negative (NEGATIVE) 12/20/16 00:45 Ur Phencyclidine Scrn Negative (NEGATIVE) 12/20/16 00:45 Ur Amphetamines Screen Negative (NEGATIVE) 12/20/16 00:45 U Benzodiazepines Scrn Negative (NEGATIVE) 12/20/16 00:45 U Oth Cocaine Metabols Positive (NEGATIVE) H 12/20/16 00:45 U Cannabinoids Screen Negative (NEGATIVE) 12/20/16 00:45 Alcohol, Quantitative < 10 mg/dL (0-10) 12/19/16 15:50 Blood Type O POSITIVE 12/19/16 10:29 Blood Type Confirm O POSITIVE 12/19/16 10:50 Antibody Screen Positive 12/19/16 10:29 Antibody Identification Anti S 12/19/16 10:29 Antigen Identification S Antigen - NEGATIVE 12/19/16 10:29 Crossmatch See Detail 12/19/16 10:29 BBK History Checked No verified bt 12/19/16 10:29 - Hospital Course Hospital Course: attending note; patient seen and examined with resident. Patient is alert, awake and oriented. Patient is a 56 y/o AAM with past medical hx of HTN, hemorrhoids, anemia, hyperlipidemia, h/o blood Transfusion in the past, cocaine, and alcohol abuse, who presents with chest pain/SOB on exertion and anemia with hemoglobin of 6.4. stool guiac positive. hemoglobin is 10 today. 4 units PRBC transfusion. s/p EGD. EGD showed a non-obstructing schatzki ring, small hiatal hernia, gastric ulcer , non-bleeding erosive gastropathy, and three bleeding angiodysplastic lesions in the duodenum. continue PPI. Apical chest pain: CE negative. cardiology evaluation appreciated. cocaine/alcohol abuse. complete cessation is strongly advised. active smoking; smoking cessation is strongly advised. CT abdomen and pelvis is negative. Case discussed with GI in detail. started on clear liquid diet and advanced to soft diet. Tolerated diet well. Discharge home with close follow up with GI. upon discharge the patient will follow-up with PMD DR. Marie. diagnosis: GI bleed erosive gastropathy/AVM smoking cocaine abuse alcohol abuse
--- NOTE | 2016-12-21 17:32 | PN ---
DATE: 12/21/2016 The patient is in room 369, bed 2. REASON FOR CONSULTATION AND FOLLOWUP: Burning sensation in the chest, admitted with low hemoglobin a nd hematocrit, black tarry stools. HISTORY OF PRESENT ILLNESS: A 56-year-old -Italian male with past medical history significan t for hypertension, hemorrhoid, anemia, hyperlipidemia, tobacco abuse, alcohol abuse, cocaine abuse, who developed pressure-like sensation, burning sensation in the chest and epigastric area. The patie nt's admitting hemoglobin was 6. The patient received blood transfusions. The patient denying any c hest pain, shortness of breath, or palpitation. PHYSICAL EXAMINATION: VITAL SIGNS: Blood pressure 138/73, respirations 17, pulse 62, temperature 98.2. HEAD: Normocephalic. EYES: Pupils normal. Conjunctivae slightly pale. NECK: JVP low. Carotid equal. THORAX: AP diameter normal. LUNGS: Clear. CARDIOVASCULAR: S1, S2. ABDOMEN: Soft, nontender, no organomegaly. Bowel sounds normal. EXTREMITIES: No clubbing, no cyanosis. LABORATORY DATA: WBC 4.4, hemoglobin 10.0, hematocrit 32.1, platelet 270. Sodium 138, potassium 4.1 , BUN 5, creatinine 1.0, sugar 102. DIAGNOSES: Severe anemia, burning sensation most likely secondary to anemia as well as epigastric pa in, rule out peptic ulcer disease. No evidence of acute coronary syndrome. History of hemorrhoids, hypertension, hyperlipidemia. PLAN: The patient is on Protonix 40 mg IV daily. The patient went for endoscopy today. We will fol low with you. Reji Mckeon MD cc: [phone] TT: 12/21/2016 17:31:56 Confirmation # [id number] Dictation # [id number] tn
== END 2016-12-21 17:09 | disposition home or self-care (01) | DRG 174 ==
LOC: ED 08:26 → ERH 10:53 → 2RNO 11:55 → 3RNO 12-20 18:45
PROVIDERS: ADMIT Internal Medicine; ATTEND Internal Medicine
PROC: 30233N1 Transfusion of Nonautologous Red Blood Cells into Peripheral Vein, Percutaneous Approach (ICD-10-PCS; 2016-12-19)
PROC: 0W3P8ZZ Control Bleeding in Gastrointestinal Tract, Via Natural or Artificial Opening Endoscopic (ICD-10-PCS; principal; 2016-12-21 08:00)
PROC: 0DB68ZX Excision of Stomach, Via Natural or Artificial Opening Endoscopic, Diagnostic (ICD-10-PCS; 2016-12-21 08:00)
DX: K31.811 Angiodysplasia of stomach and duodenum with bleeding (principal); K22.2 Esophageal obstruction; K25.9 Gastric ulcer, unspecified as acute or chronic, without hemorrhage or perforation; D50.9 Iron deficiency anemia, unspecified; F14.10 Cocaine abuse, uncomplicated; I10 Essential (primary) hypertension; E78.5 Hyperlipidemia, unspecified; K64.8 Other hemorrhoids; F10.10 Alcohol abuse, uncomplicated; R07.89 Other chest pain; G89.29 Other chronic pain; F17.210 Nicotine dependence, cigarettes, uncomplicated; K60.2 Anal fissure, unspecified; K51.50 Left sided colitis without complications; K29.50 Unspecified chronic gastritis without bleeding; K44.9 Diaphragmatic hernia without obstruction or gangrene; Z82.49 Family history of ischemic heart disease and other diseases of the circulatory system; Z83.3 Family history of diabetes mellitus

== ENCOUNTER 2017-10-28 09:31 | Inpatient (IN) | payer MEDICAID ==
[2017-10-28 09:51] VITALS: BMI 29.2
--- NOTE | 2017-10-28 10:05 | ED PDOC ---
Arrival/HPI - General Chief Complaint: Shortness Of Breath Time Seen by Provider: 10/28/17 09:41 Historian: Patient - History of Present Illness Narrative History of Present Illness (Text): 10/28/17 10:07 56-year-old male presents today with a one-week history of dyspnea on exertion and shortness of breath and generalized weakness. Patient denies dizziness. Complaining of generalized fatigue. Patient states he has a history of anemia. The patient describes a slight pressure in the chest which only occurs with exertion. Denies abdominal pain. No nausea or vomiting. Denies any trauma or injury. Patient states he feels as if his legs are swollen/heavy. No medications have been taken for pain at home. No other complaints 10/28/17 10:08 Symptom Course: Worsening Quality: Pressure Severity Level: Mild Past Medical History - Provider Review Nursing Documentation Reviewed: Yes - Travel History Have you recently traveled outside [place] w/in the past 3 mons?: No - Infectious Disease Hx of Infectious Diseases: None - Tetanus Immunization Tetanus Immunization: Unknown - Cardiac Hx Cardiac Disorders: Yes Hx Hypertension: Yes - Pulmonary Hx Respiratory Disorders: Yes (SMOKES CIGARETTES 7-8 CIG A DAY) - Neurological Hx Neurological Disorder: No - HEENT Hx HEENT Disorder: No (WEARS RX GLASSES) - Renal Hx Renal Disorder: No - Endocrine/Metabolic Hx Endocrine Disorders: No - Hematological/Oncological Hx Blood Transfusions: No Hx Blood Transfusion Reaction: No - Integumentary Hx Dermatological Disorder: No - Musculoskeletal/Rheumatological Hx Musculoskeletal Disorders: No Hx Falls: No - Gastrointestinal Hx Gastrointestinal Disorders: Yes Hx Gastroesophageal Reflux: Yes Other/Comment: GI BLEED.ALSO HAS HEMORRHOIDS,COLONOSCOPY DONE - Genitourinary/Gynecological Hx Genitourinary Disorders: No - Psychiatric Hx Psychophysiologic Disorder: No Hx Substance Use: No - Anesthesia Hx Anesthesia Reactions: No Hx Malignant Hyperthermia: No Family/Social History - Physician Review Nursing Documentation Reviewed: Yes Family/Social History: Unknown Family HX Smoking Status: Light Smoker < 10 Cigarettes Daily Hx Alcohol Use: Yes Hx Substance Use: No Allergies/Home Meds Allergies/Adverse Reactions: Allergies No Known Allergies Allergy (Verified 10/28/17 09:50) Home Medications: Home Meds Medication Instructions Recorded Confirmed Aspirin [Ecotrin] 81 mg PO DAILY 12/19/16 10/28/17 amLODIPine [Norvasc] 10 mg PO DAILY 12/19/16 10/28/17 Review of Systems - Review of Systems Constitutional: Fatigue. absent: Fevers ENT: Sinus Congestion. absent: Sore Throat Respiratory: SOB, Cough Cardiovascular: Chest Pain, CHARLES. absent: Palpitations Gastrointestinal: absent: Abdominal Pain, Nausea, Vomiting Genitourinary Male: absent: Dysuria Musculoskeletal: absent: Arthralgias Skin: absent: Rash, Pruritis Neurological: Headache. absent: Dizziness Psychiatric: absent: Anxiety, Depression, Suicidal Ideation Physical Exam Vital Signs Reviewed: Yes Vital Signs Temp Pulse Resp BP Pulse Ox 10/28/17 20:05 98.9 F 78 18 135/76 10/28/17 19:01 78 20 145/100 H 100 10/28/17 18:31 98 F 72 18 159/68 H 10/28/17 16:38 98.2 F 78 18 165/58 H 10/28/17 15:53 98.8 F 68 18 168/88 H 10/28/17 15:52 98.8 F 68 18 168/88 H 10/28/17 15:37 98.7 F 79 18 149/68 98 10/28/17 13:31 85 18 167/97 H 97 10/28/17 09:47 98.5 F 86 18 132/61 98 Temperature: Afebrile Blood Pressure: Normal Pulse: Regular Respiratory Rate: Normal Appearance: Positive for: Well-Appearing, Non-Toxic, Comfortable Pain Distress: None Mental Status: Positive for: Alert and Oriented X 3 - Systems Exam Head: Present: Atraumatic Mouth: Present: Moist Mucous Membranes Neck: Present: Normal Range of Motion Respiratory/Chest: Present: Clear to Auscultation, Good Air Exchange. No: Respiratory Distress, Accessory Muscle Use Cardiovascular: Present: Regular Rate and Rhythm Abdomen: No: Tenderness, Distention, Rebound, Guarding Rectal: Present: Occult Blood, Hemorrhoids, Normal Rectal Tone, Other ( chaparoned by dr. burt). No: Rectal Tenderness, Gross Blood, Melena, Fissures Back: Present: Normal Inspection Upper Extremity: Present: Normal ROM Lower Extremity: Present: Normal ROM. No: Edema Neurological: Present: GCS=15, Speech Normal Skin: Present: Warm, Dry, Normal Color. No: Rashes Psychiatric: Present: Alert, Oriented x 3 Medical Decision Making ED Course and Treatment: 10/28/17 10:09 56yr old male with CP, sob, CHARLES x 1 week. cbc:Hgb; 3.5 cmp: wnl BNP: wnl ekg; sinus rhythm with PACs and 91 bpm normal axis and no ST elevations QTc 479 cxr; wnl ua; pending heme + brown stool. no gross blood. 10/28/17 11:02 hgb 3.5. vitals stable. consent for blood transfusion obtained. 2units ordered. case discussed with dr. cruz; accepts admission with GI consult for symptomatic anemia with occult blood. pt reassessment; pt non toxic. no distress. eating food in er. stable vitals. all aspects of this case were discussed the attending of record. impression; chest pain, symptomatic anemia admit to ICU 10/28/17 20:07 pt seen by [employer]person; accepted to ICU Reassessment Condition: Re-examined - Lab Interpretations Lab Results: 10/28/17 10:21 10/28/17 10:21 Lab Results 10/28/17 10:21: Iron 11 L, TIBC 498 H, % Saturation 2 L 10/28/17 10:21: Retic Count 1.46 10/28/17 10:21: WBC 3.3 L D, RBC 2.45 L, Hgb 3.5 L*, Hct 14.1 L*, MCV 57.6 L, MCH 14.3 L, MCHC 24.8 L, RDW 18.4 H, Plt Count 264, MPV 9.5, Gran % 37.8 L, Lymph % (Auto) 43.2 H, [place] % (Auto) 11.5 H, Eos % (Auto) 4.8, Baso % (Auto) 2.7 , Gran # 1.25 L, Lymph # (Auto) 1.4, [place] # (Auto) 0.4, Eos # (Auto) 0.2, Baso # (Auto) 0.09 10/28/17 10:21: Sodium 142, Potassium 4.3, Chloride 109 H, Carbon Dioxide 22, Anion Gap 15, BUN 14, Creatinine 1.1, Est GFR ( Amer) > 60, Est GFR (Non- Af Amer) > 60, Random Glucose 153 H, Calcium 9.0, Total Bilirubin 0.5, AST 50, ALT 34, Alkaline Phosphatase 80, Lactate Dehydrogenase 637, Total Creatine Kinase 250 H, CK-MB (CK-2) 0.9, CK-MB (CK-2) % Cancelled, Troponin I < 0.01, NT- Pro-B Natriuret Pep 327, Total Protein 6.8, Albumin 3.6, Globulin 3.1, Albumin/ Globulin Ratio 1.2 10/28/17 10:21: PT 13.9 H, INR 1.20 H, APTT 50.5 H 10/28/17 10:00: Blood Type O POSITIVE, Antibody Screen Negative, Crossmatch See Detail, BBK History Checked Patient has bt - RAD Interpretation Radiology Orders: 10/28/17 09:55 CHEST PORTABLE [RAD] Stat - Medication Orders Current Medication Orders: Amlodipine Besylate (Norvasc) 10 mg PO DAILY OVI Guaifenesin (Robitussin) 100 mg PO Q4H PRN PRN Reason: Cough Pantoprazole Sodium (Protonix Inj) 40 mg IVP Q12 OVI Sodium Chloride ([place] Nasal [place]) 0 ml NS Q8 OVI Disposition/Present on Arrival - Present on Arrival Any Indicators Present on Arrival: No History of DVT/PE: No History of Uncontrolled Diabetes: No Urinary Catheter: No History of Decub. Ulcer: No History Surgical Site Infection Following: None - Disposition Have Diagnosis and Disposition been Completed?: Yes Diagnosis: Symptomatic anemia, Chest pain Disposition: HOSPITALIZED Disposition Time: 11:03 Patient Plan: Admission Patient Problems: Current Active Problems Problem Status Onset Chest pain Acute Symptomatic anemia Acute Condition: FAIR
[2017-10-28 10:40] LABS: BASO # 0.09 K/mm3 (0.0-2.0); BASO % 2.7 % (0.0-3.0); EOS # 0.2 (0.0-0.7); EOS % 4.8 % (1.5-5.0); GRAN # 1.25 (1.4-6.5); GRAN % 37.8 % (50.0-68.0); LYMPH # 1.4 (1.2-3.4); LYMPH % 43.2 % (22.0-35.0); MEAN CELL VOLUME 57.6 fl (80.0-105.0); MEAN CORPUSCULAR HEMOGLOBIN 14.3 pg (25.0-35.0); MEAN CORPUSCULAR HGB CONC 24.8 g/dl (31.0-37.0); MEAN PLATELET VOLUME 9.5 fl (7.0-11.0); MONO # 0.4 (0.1-0.6); MONO % 11.5 % (1.0-6.0); RBC 2.45 10^6/uL (3.5-6.1); RED CELL DISTRIBUTION WIDTH 18.4 % (11.5-14.5); WHITE BLOOD COUNT 3.3 10^3/ul (4.5-11.0)
[2017-10-28 10:46] LABS: INR 1.2 (0.93-1.08); PARTIAL THROMBOPLASTIN TIME 50.5 Seconds (25.1-36.5); PROTHROMBIN TIME 13.9 SECONDS (9.4-12.5)
[2017-10-28 10:51] LABS: ALB/GLOB RATIO 1.2 (1.1-1.8); ALBUMIN 3.6 g/dL (3.0-4.8); ALT/SGPT 34 U/L (7-56); AST/SGOT 50 U/L (17-59); BLOOD UREA NITROGEN 14 mg/dL (7-21); GFR AFRICAN-AMERICAN > 60; GFR NON-AFRICAN AMERICAN > 60; HEMOGLOBIN 3.5 g/dL (14.0-18.0)
[2017-10-28 10:54] LABS: B-TYPE NATRIURETIC PEPTIDE 327 pg/mL (0-450); TROPONIN I < 0.01 ng/mL
[2017-10-28 11:02] LABS: CK-MB 0.9 ng/mL (0.0-3.6)
--- NOTE | 2017-10-28 12:07 | RAD ---
HISTORY: chest pain COMPARISON: 12/19/2016. FINDINGS: LUNGS: The lungs are well inflated and clear. PLEURA: No significant pleural effusion identified, no pneumothorax apparent. CARDIOVASCULAR: There is stable mild cardiomegaly. OSSEOUS STRUCTURES: No significant abnormalities. VISUALIZED UPPER ABDOMEN: Normal. OTHER FINDINGS: None. IMPRESSION: No active pulmonary disease.
--- NOTE | 2017-10-28 12:19 | CARD ---
APPROVED REPORT EKG Measurement Heart [id number] NM [id number] <Conclusion> Sinus rhythm LVH by voltage NSSTW changes Prolonged QTc
[2017-10-28 13:21] LABS: URINE BILIRUBIN NEGATIVE (NEGATIVE); URINE BLOOD NEGATIVE (NEGATIVE); URINE GLUCOSE (UA) NEGATIVE (NEGATIVE); URINE LEUKOCYTE ESTERASE NEGATIVE Leu/uL (NEGATIVE); URINE NITRATE NEGATIVE (NEGATIVE); URINE PROTEIN NEGATIVE mg/dL (<30 mg/dL)
--- NOTE | 2017-10-28 13:21 | CP.PCM.HP ---
Addendum entered and electronically signed by Paloma Kumar DO 10/28/17 16:15 : 2u prbc Original Note: <Paloma Kumar - Last Filed: 10/28/17 16:12> History of Present Illness - History of Present Illness History of Present Illness: PGY-[address] Leos Mr Tu Mendez, 56 M, former smoker, current cocain user, with PMHx asthma anc chronic anemia c/o one-week history of dyspnea on exertion, and generalized weakness. Pt has a cold 2 weeks ago with cough and congestion. Then he noticed increasing SOB on exertion if he walk across the room. Denies SOB at rest. At baseline, he can ambulate [address] climb 1 flight of stairs without shortness of breath. In ED, Hb 3.5 (baseline 8-10). MCV 57.6 INR 1.2. APTT 50.5 Heme occult for stool positive ROS - (+) Abdominal bloating. No nausea or vomiting. No abdominal pain (+) slight pressure in the chest which only occurs with exertion. (+) papitation (+) likes to eat ice (+) generalized fatigue. (+) his legs are swollen/heavy (+) lightheadedness (+) congestion/cough Denies dizziness. Denies any trauma or injury. Denies recent change in meds, skipped meds, travel. EGD (12/2016) - non-obstructing schatzi ring at egd - gastric ulcer, superficial, and few small nonbleeding erosion in the antrum - 3 medium size angiodysplastic lesions with bleeding, 2nd part of duodenum, injected with epi and argon plasma coagulation Chronic anemia with schatziki ring ECHO: (12/2016) - mild to moderate concentric left ventricular hypertropy. 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 Nguyễn Oscar - but has never follow up PMD: Dr. Marie Present on Admission - Present on Admission Any Indicators Present on Admission: No Review of Systems - Review of Systems All systems: reviewed and no additional remarkable complaints except Review of Systems: as in hpi Past Patient History - Infectious Disease Hx of Infectious Diseases: None - Tetanus Immunizations Tetanus Immunization: Unknown - Past Medical History & Family History Past Medical History?: Yes - Past Social History Smoking Status: Light Smoker < 10 Cigarettes Daily - CARDIAC Hx Cardiac Disorders: Yes Hx Hypertension: Yes - PULMONARY Hx Respiratory Disorders: Yes (SMOKES CIGARETTES 7-8 CIG A DAY) - NEUROLOGICAL Hx Neurological Disorder: No - HEENT Hx HEENT Problems: No (WEARS RX GLASSES) - RENAL Hx Chronic Kidney Disease: No - ENDOCRINE/METABOLIC Hx Endocrine Disorders: No - HEMATOLOGICAL/ONCOLOGICAL Hx Blood Transfusions: No Hx Blood Transfusion Reaction: No - INTEGUMENTARY Hx Dermatological Problems: No - MUSCULOSKELETAL/RHEUMATOLOGICAL Hx Musculoskeletal Disorders: No Hx Falls: No - GASTROINTESTINAL Hx Gastrointestinal Disorders: Yes Hx Gastroesophageal Reflux: Yes Other/Comment: GI BLEED.ALSO HAS HEMORRHOIDS,COLONOSCOPY DONE - GENITOURINARY/GYNECOLOGICAL Hx Genitourinary Disorders: No - PSYCHIATRIC Hx Psychophysiologic Disorder: No Hx Substance Use: No - SURGICAL HISTORY Hx Surgeries: No - ANESTHESIA Hx Anesthesia Reactions: No Hx Malignant Hyperthermia: No Meds Allergies/Adverse Reactions: Allergies Allergy/AdvReac Type Severity Reaction Status Date / Time No Known Allergies Allergy Verified 10/29/17 11:51 Physical Exam - Constitutional Appears: No Acute Distress - Head Exam Head Exam: ATRAUMATIC, NORMAL INSPECTION, NORMOCEPHALIC - Eye Exam Eye Exam: EOMI, Normal appearance, PERRL. absent: Scleral icterus Pupil Exam: NORMAL ACCOMODATION - ENT Exam ENT Exam: Mucous Membranes Moist - Neck Exam Additional comments: supple - Respiratory Exam Respiratory Exam: Clear to Auscultation Bilateral, NORMAL BREATHING PATTERN. absent: Rales, Rhonchi, Wheezes - Cardiovascular Exam Cardiovascular Exam: REGULAR RHYTHM, +S1, +S2, Systolic Murmur - GI/Abdominal Exam GI & Abdominal Exam: Normal Bowel Sounds, Soft. absent: Distended, Firm, Rigid , Tenderness - Extremities Exam Extremities exam: Positive for: pedal edema (slight). Negative for: calf tenderness - Back Exam Back exam: absent: CVA tenderness (L), CVA tenderness (R) - Neurological Exam Neurological exam: Alert, Oriented x3 - Psychiatric Exam Psychiatric exam: Normal Affect, Normal Mood - Skin Skin Exam: Dry, Normal Color, Warm Additional comments: pale conjunctiva Results - Vital Signs Recent Vital Signs: Last Vital Signs Temp 98.5 F 10/28/17 09:47 Pulse 86 10/28/17 09:47 Resp 18 10/28/17 09:47 BP 132/61 10/28/17 09:47 Pulse Ox 98 10/28/17 09:47 - Labs Result Diagrams: 10/28/17 10:21 10/28/17 10:21 Assessment & Plan - Assessment and Plan (Free Text) Plan: Mr Tu Mendez, 56 M, former smoker, current cocain user, with PMHx asthma, Hx 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 Pt has a cold 2 weeks ago with cough and congestion. In ED, Hb 3.5 (baseline 8-10). MCV 57.6. INR 1.2. APTT 50.5. Heme occult for stool positive Anemia, Acute on chronic, suspect GI source - protonix 40 PO bid - Consult GI for EGD/Colonoscopy - Fe study, B12, folate, reticulocyte count, peripheral smear - CT abdomen and pelvis with PO contrast - Echocardiogram to assess anemia effect on heart Viral upper respiratory illness - ocean spray - guifenacin Hx HTN on home norvasc FEN - [facility] diet Consult - GI = Dr Lee Pvx: SCD s/r/d/w Dr. Leos <Jesus Leos B - Last Filed: 10/29/17 16:10> Results - Vital Signs Recent Vital Signs: Last Vital Signs Temp 98 F 10/29/17 14:42 Pulse 73 10/29/17 14:42 Resp 24 10/29/17 14:42 BP 112/50 L 10/29/17 14:42 Pulse Ox 96 10/29/17 14:42 - Labs Result Diagrams: 10/29/17 06:30 10/29/17 06:30 Labs: Laboratory Results - last 24 hr 10/28/17 10/28/17 10/28/17 15:20 15:20 22:25 WBC 3.3 L RBC 2.87 L Hgb 5.3 L* Hct 18.5 L* MCV 64.5 L D MCH 18.5 L MCHC 28.6 L RDW 27.4 H Plt Count 219 MPV 9.1 Sodium Potassium Chloride Carbon Dioxide Anion Gap BUN Creatinine Est GFR ( Amer) Est GFR (Non-Af Amer) Random Glucose Calcium Total Bilirubin AST ALT Alkaline Phosphatase Total Protein Albumin Globulin Albumin/Globulin Ratio Urine Opiates Screen Negative Urine Methadone Screen Negative Ur Barbiturates Screen Negative Ur Phencyclidine Scrn Negative Ur Amphetamines Screen Negative U Benzodiazepines Scrn Negative U Oth Cocaine Metabols Positive H U Cannabinoids Screen Negative Influenza Typ A,B (EIA) Negative for flu a/b 10/29/17 10/29/17 06:30 06:30 WBC 3.2 L RBC 3.17 L Hgb 6.2 L* Hct 20.7 L* MCV 65.3 L MCH 19.6 L MCHC 30.0 L RDW 27.7 H Plt Count 230 MPV 9.3 Sodium 140 Potassium 4.2 Chloride 109 H Carbon Dioxide 21 Anion Gap 14 BUN 11 Creatinine 1.0 Est GFR ( Amer) > 60 Est GFR (Non-Af Amer) > 60 Random Glucose 93 Calcium 9.0 Total Bilirubin 1.4 H AST 43 ALT 35 Alkaline Phosphatase 78 Total Protein 6.6 Albumin 3.4 Globulin 3.1 Albumin/Globulin Ratio 1.1 Urine Opiates Screen Urine Methadone Screen Ur Barbiturates Screen Ur Phencyclidine Scrn Ur Amphetamines Screen U Benzodiazepines Scrn U Oth Cocaine Metabols U Cannabinoids Screen Influenza Typ A,B (EIA) Attending/Attestation - Attestation I have personally seen and examined this patient.: Yes I have fully participated in the care of the patient.: Yes I have reviewed all pertinent clinical information: Yes Notes (Text): I have seen and examined the patient at bedside. Agree with the above note with the following additions/ exceptions: Briefly this is 56 year old male with history of cocaine abuse, asthma, AVM's in duodenum, chronic anemia, erosive gastropathy, alcohol abuse, HTN, non obstructing schatzki ring who was admitted for symptomatic anemia. Upon admission, Hb was found to be 3.5. His baseline is usually 8-10. MCV is microcytic most likely iron deficiency. FOBT positive. Patient will be admitted to ICU. Will do anemia work up and start tarnsfusing 3 units of prbc. Will consult GI. Will order CT abdomen/ pelvis. Echo will be ordered. Patient will be closely monitored. Patient denies any melena, hemoptysis, hematemesis, hematuria or epistaxis. He has pica for ice. Upon discharge patient will follow up with Dr Marie. Dr Jesus Leos
[2017-10-28 13:24] LABS: URINE COLOR YELLOW (YELLOW)
[2017-10-28 13:25] LABS: URINE APPEARANCE CLEAR (CLEAR)
[2017-10-28 14:24] LABS: IRON 11 ug/dL (45-180)
[2017-10-28] MEDS ORDERED: guaiFENesin 100 mg/5 ml Syrup UD PO PRN (14:26)
[2017-10-28 14:33] LABS: % IRON SATURATION 2 % (20-55); TOTAL IRON BINDING CAPACITY 498 ug/dL (261-462)
[2017-10-28] MEDS ORDERED: Iohexol 350 MG/100 ML VIAL ONE (14:33)
[2017-10-28] MEDS ORDERED: Iohexol 240 (50 ml) ONE (14:55)
[2017-10-28 16:04] LABS: BARBITURATES, UR NEGATIVE (NEGATIVE); BENZODIAZEPINES, UR NEGATIVE (NEGATIVE); OPIATES, UR NEGATIVE (NEGATIVE); PHENCYCLIDINE, UR NEGATIVE (NEGATIVE)
--- NOTE | 2017-10-28 16:46 | CP.PCM.CON ---
<Shoshana Angel - Last Filed: 10/28/17 16:41> History of Present Illness - History of Present Illness History of Present Illness: ICU consult note for Dr Weber Reason for consul: Acute anemia Patient is a 56 y/o Male with PMHx of htn, chronic anemia requiring transfusions in the past who presented with worsening shortness of breath and chest pain for 2 weeks, was found to have anemia with hgb of 3.5. ICU is being consulted for evaluation. Patient states this would be the 3rd time he's getting blood transfusions. States he has chronic anemia, his hgb usually runs around 8. Patient was last transfused about 9 months ago. Patient had Colonoscopy [place] [facility] [place] in the past and was found to have bleeding hemorrhoids. Had EGD at [facility] [place]2016 and was found to have one superficial gastric ulcer, small non bleeding erosions with 2nd part of the duodenum with angiodysplastic lesion. Denies rectal bleeding, denies black tarry stool, or blood in the stool. Denies nausea/vomiting or diarrhea. Admits to dizziness, denies headache. No abdominal pain. Admits to cough with sputum 2 weeks ago. No fever or chills. PMHx: as stated above PSHx: colonoscopy and EGD 12/2016) FMHx: non contributory Social: former tobacco, quit a month ago, denies alcohol, admits to using cocaine over the weekend. PMHx: denies Home meds: Norvasc. Review of Systems - Review of Systems All systems: reviewed and no additional remarkable complaints except Review of Systems: 12 point ROS, all reviewed, except as per HPI. Past Patient History - Infectious Disease Hx of Infectious Diseases: None - Tetanus Immunizations Tetanus Immunization: Unknown - Past Medical History & Family History Past Medical History?: Yes - Past Social History Smoking Status: Light Smoker < 10 Cigarettes Daily Alcohol: None Drugs: Cocaine Home Situation {Lives}: With Family - CARDIAC Hx Cardiac Disorders: Yes Hx Hypertension: Yes - PULMONARY Hx Respiratory Disorders: Yes (SMOKES CIGARETTES 7-8 CIG A DAY) - NEUROLOGICAL Hx Neurological Disorder: No - HEENT Hx HEENT Problems: No (WEARS RX GLASSES) - RENAL Hx Chronic Kidney Disease: No - ENDOCRINE/METABOLIC Hx Endocrine Disorders: No - HEMATOLOGICAL/ONCOLOGICAL Hx Blood Transfusions: No Hx Blood Transfusion Reaction: No - INTEGUMENTARY Hx Dermatological Problems: No - MUSCULOSKELETAL/RHEUMATOLOGICAL Hx Musculoskeletal Disorders: No Hx Falls: No - GASTROINTESTINAL Hx Gastrointestinal Disorders: Yes Hx Gastroesophageal Reflux: Yes Other/Comment: GI BLEED.ALSO HAS HEMORRHOIDS,COLONOSCOPY DONE - GENITOURINARY/GYNECOLOGICAL Hx Genitourinary Disorders: No - PSYCHIATRIC Hx Psychophysiologic Disorder: No Hx Substance Use: No - SURGICAL HISTORY Hx Surgeries: No - ANESTHESIA Hx Anesthesia Reactions: No Hx Malignant Hyperthermia: No Meds Allergies/Adverse Reactions: Allergies Allergy/AdvReac Type Severity Reaction Status Date / Time No Known Allergies Allergy Verified 10/28/17 09:50 - Medications Medications: Current Medications Amlodipine Besylate (Norvasc) 10 mg PO DAILY OVI Guaifenesin (Robitussin) 100 mg PO Q4H PRN PRN Reason: Cough Pantoprazole Sodium (Protonix Inj) 40 mg IVP Q12 OVI Sodium Chloride ([place] Nasal [place]) 0 ml NS Q8 OVI Physical Exam - Constitutional Appears: No Acute Distress - Head Exam Head Exam: ATRAUMATIC, NORMAL INSPECTION, NORMOCEPHALIC - Eye Exam Eye Exam: EOMI, Normal appearance, PERRL. absent: Scleral icterus (pale sclera) Pupil Exam: NORMAL ACCOMODATION, PERRL - ENT Exam ENT Exam: Mucous Membranes Moist - Neck Exam Neck exam: Positive for: Normal Inspection - Respiratory Exam Respiratory Exam: Clear to Auscultation Bilateral, NORMAL BREATHING PATTERN. absent: Prolonged Expiratory Phase, Rales, Rhonchi, Wheezes, Respiratory Distress, Stridor - Cardiovascular Exam Cardiovascular Exam: REGULAR RHYTHM, RRR, +S1, +S2. absent: Gallop, JVD, Rubs, Systolic Murmur - GI/Abdominal Exam GI & Abdominal Exam: Distended, Firm, Normal Bowel Sounds, Soft. absent: Guarding, Rebound, Rigid, Tenderness - Extremities Exam Extremities exam: Positive for: normal inspection. Negative for: pedal edema - Back Exam Back exam: NORMAL INSPECTION - Neurological Exam Neurological exam: Alert, Oriented x3 - Psychiatric Exam Psychiatric exam: Normal Affect, Normal Mood - Skin Skin Exam: Dry, Intact, Normal Color, Warm Results - Vital Signs Recent Vital Signs: Last Vital Signs Temp 98.8 F 10/28/17 15:53 Pulse 68 10/28/17 15:53 Resp 18 10/28/17 15:53 BP 168/88 H 10/28/17 15:53 Pulse Ox 97 02/12/18 13:31 - Labs Result Diagrams: 10/28/17 10:21 10/28/17 10:21 Labs: Laboratory Results - last 24 hr 10/28/17 10/28/17 10/28/17 13:00 15:20 15:20 Urine Color Yellow Urine Appearance Clear Urine pH 6.0 Ur Specific [place] 1.015 Urine Protein Negative Urine Glucose (UA) Negative Urine Ketones Negative Urine Blood Negative Urine Nitrate Negative Urine Bilirubin Negative Urine Urobilinogen 1.0 H Ur Leukocyte Esterase Negative Urine Opiates Screen Negative Urine Methadone Screen Negative Ur Barbiturates Screen Negative Ur Phencyclidine Scrn Negative Ur Amphetamines Screen Negative U Benzodiazepines Scrn Negative U Oth Cocaine Metabols Positive H U Cannabinoids Screen Negative Influenza Typ A,B (EIA) Negative for flu a/b Assessment & Plan - Assessment and Plan (Free Text) Assessment: Patient is a 56 y/o Male with PMHx of htn, chronic anemia requiring transfusions in the past who presented with worsening shortness of breath and chest pain for 2 weeks, was found to have anemia with hgb of 3.5. Patient is to admitted to ICU for further management and monitoring. Plan: Neuro: stable at baseline Pulm: stable at baseline Nasal cannula prn to maintain O2 sat above 90%. Cough- chest x-ray normal, robittusin prn. Cardiology: CP and sob likely due to severe anemia patient is hemodynamically stable Keep map above 65 h/o htn- on po Norvasc echo ordered Heme: acute on chronic anemia likely due to GI losses, h/o duodenal angiodysplasia/gastritis and ulcer. - Patient to get transfused to hemoglobin around 7 - GI is consulted - CT abdomen and pelvis pending - Anemia work pending - No overt GI bleeding noted at this time. ID: low sepsis probability, will continue to monitor Renal: stable, will continue to monitor GI: clear liquid diet. ppi 40 q12 ivp. Endo: maintain euglycemia DVT prophylaxis: compressive devices. Patient seen, and examined with attending. - Date & Time Date: 10/28/17 Time: 17:50 <Oneil Weber - Last Filed: 10/28/17 17:24> Meds - Medications Medications: Current Medications Amlodipine Besylate (Norvasc) 10 mg PO DAILY OVI Guaifenesin (Robitussin) 100 mg PO Q4H PRN PRN Reason: Cough Pantoprazole Sodium (Protonix Inj) 40 mg IVP Q12 OVI Sodium Chloride (Bay Nasal [place]) 0 ml NS Q8 OVI Results - Vital Signs Recent Vital Signs: Last Vital Signs Temp 98.8 F 10/28/17 15:53 Pulse 68 10/28/17 15:53 Resp 18 10/28/17 15:53 BP 168/88 H 10/28/17 15:53 Pulse Ox 97 10/28/17 13:31 - Labs Result Diagrams: 10/28/17 10:21 10/28/17 10:21 Labs: Laboratory Results - last 24 hr 10/28/17 10/28/17 10/28/17 13:00 15:20 15:20 Urine Color Yellow Urine Appearance Clear Urine pH 6.0 Ur Specific [place] 1.015 Urine Protein Negative Urine Glucose (UA) Negative Urine Ketones Negative Urine Blood Negative Urine Nitrate Negative Urine Bilirubin Negative Urine Urobilinogen 1.0 H Ur Leukocyte Esterase Negative Urine Opiates Screen Negative Urine Methadone Screen Negative Ur Barbiturates Screen Negative Ur Phencyclidine Scrn Negative Ur Amphetamines Screen Negative U Benzodiazepines Scrn Negative U Oth Cocaine Metabols Positive H U Cannabinoids Screen Negative Influenza Typ A,B (EIA) Negative for flu a/b Assessment & Plan - Assessment and Plan (Free Text) Plan: Patient seen and examined with resident, agree with note with foollowing additions/exceptions: Patient is 56yo male with PMhx of cocaine abuse, UGIB, chronic anemia, requiring blood transfusions, presents with SOB and CP, found to have Hgb 3.4. Denies fever, chills, cough, palpitaiotns, MARSHALL, dizziness, melena, BRBPR. Currently afebrile, HD stable, comfortable in AND, benign abd exam, receiving 1st unit of pRBC. Transfuse 3u PRBC, goal HH > 7, obtain GI eval, clear liquid diet, hodl HSQ, ASA. ECHO, hold BP meds for now. Obtain CT A/P to rule out intrabdominal pathology. Stable, admit to MICU for monitoring.
--- NOTE | 2017-10-28 20:05 | CT ---
EXAM: CT Abdomen and Pelvis Without Intravenous Contrast EXAM DATE/TIME: 10/28/2017 2:51 PM CLINICAL HISTORY: 56 years old, male; Pain and signs and symptoms; Other: Anemia; Abdominal pain; Acute; Additional info: R/O cancer TECHNIQUE: 0 Coronal and sagittal reformatted images were created and reviewed. COMPARISON: Prior CT abdomen and pelvis of 2016-12-19 FINDINGS: LIMITATIONS: Mild streak/motion artifact. LOWER THORAX: Lung bases findings suspicious for underlying chronic pulmonary interstitial fibrosis. There are mild bilateral subpleural cystic changes. Heart appears moderately enlarged. Dense septum sign noted in the heart, compatible with the given diagnosis of anemia. ABDOMEN: LIVER:No acute abnormality of the liver identified. No evidence of diffuse liver lesions. GALLBLADDER AND BILE DUCTS: No CT evidence of acute cholecystitis. No evidence of significant biliary ductal dilatation. PANCREAS: No CT evidence of acute pancreatitis. No large pancreatic mass seen, however, unenhanced technique limits evaluation. SPLEEN: No acute abnormality of the spleen identified. ADRENALS: No evidence of suspicious adrenal masses. KIDNEYS AND URETERS: Punctate, nonobstructing left renal stone. No evidence of hydroureteronephrosis. STOMACH AND BOWEL: No acute abnormality of the stomach, small bowel or colon identified. No evidence of bowel obstruction. APPENDIX: Appendix is seen, and is within normal limits in appearance. PELVIS: BLADDER: No acute abnormality of the bladder identified. REPRODUCTIVE: No acute abnormality of the reproductive organs is seen. ABDOMEN and PELVIS: INTRAPERITONEAL SPACE: No evidence of free intraperitoneal air or fluid. BONES/JOINTS: Osteoarthritic changes involving the hips bilaterally. No evidence of diffuse bony metastatic lesions. SOFT TISSUES: No acute abnormality of the visualized soft tissues is seen. VASCULATURE: No evidence of abdominal aortic aneurysm. No evidence of periaortic hemorrhage. LYMPH NODES: No evidence of diffuse lymphadenopathy. IMPRESSION: - No definite evidence of malignancy or metastatic disease on this unenhanced exam. - Lung bases findings suspicious for mild chronic pulmonary interstitial fibrosis. - Cardiomegaly. - See above for remaining findings.
[2017-10-28] MEDS ORDERED: Influenza Vaccine 60 mcg/0.5 mL SYR (4YR UP) IM ONE (20:35)
[2017-10-28] MEDS ORDERED: Pneumococcal 23-Valent Vaccine IM ONE (20:35)
[2017-10-28 21:04] LABS: FERRITIN 3.9 ng/mL
[2017-10-28 21:34] LABS: FOLATE 17.4 ng/mL
[2017-10-28 22:51] LABS: MEAN CELL VOLUME 64.5 fl (80.0-105.0); MEAN CORPUSCULAR HEMOGLOBIN 18.5 pg (25.0-35.0); MEAN CORPUSCULAR HGB CONC 28.6 g/dl (31.0-37.0); MEAN PLATELET VOLUME 9.1 fl (7.0-11.0); RBC 2.87 10^6/uL (3.5-6.1); RED CELL DISTRIBUTION WIDTH 27.4 % (11.5-14.5); WHITE BLOOD COUNT 3.3 10^3/ul (4.5-11.0)
[2017-10-28 22:57] LABS: HEMOGLOBIN 5.3 g/dL (14.0-18.0)
[2017-10-29 06:50] LABS: MEAN CELL VOLUME 65.3 fl (80.0-105.0); MEAN CORPUSCULAR HEMOGLOBIN 19.6 pg (25.0-35.0); MEAN PLATELET VOLUME 9.3 fl (7.0-11.0); RBC 3.17 10^6/uL (3.5-6.1); RED CELL DISTRIBUTION WIDTH 27.7 % (11.5-14.5); WHITE BLOOD COUNT 3.2 10^3/ul (4.5-11.0)
--- NOTE | 2017-10-29 07:24 | CP.CCUPN ---
<Shoshana Angel - Last Filed: 10/29/17 11:33> CCU Subjective - Physician Review Subjective (Free Text): 10/29/17 7:25 Patient was admitted yesterday to icu for monitoring due to hgb of 3.5. Overnight patient received 3 units of prbc, and hgb this am of 6.1. No bm since admission. States the cp and sob has resolved. States he's feeling better overall. Denies fever or chills. Critical Care Time Spent (in minutes): 45 CCU Objective - Vital Signs / Intake & Output Vital Signs (Last 4 hours): Vital Signs Pulse Resp BP Pulse Ox 10/29/17 04:26 75 18 134/54 L 100 Intake and Output (Last 8hrs): Intake & Output 10/28/17 10/29/17 10/29/17 22:59 06:59 14:59 Intake Total 650 280 Balance 650 280 Weight 187 lb Intake: Blood Product 650 280 Apheresis Rbc Cp2d As3 Lr 280 2nd Unit [id number] Red Blood Cells Cpd As1 325 Lr Unit [id number] Red Blood Cells Cpd As1 325 Lr Unit [id number] Other: Voiding Method Urinal - Physical Exam Head: Positive for: Atraumatic Mouth: Positive for: Moist Mucous Membranes Neck: Positive for: Normal Range of Motion Respiratory/Chest: Positive for: Clear to Auscultation, Good Air Exchange. Negative for: Respiratory Distress, Accessory Muscle Use Cardiovascular: Positive for: Regular Rate and Rhythm, Normal S1, S2. Negative for: Tachycardic, Bradycardic Abdomen: Positive for: Normal Bowel Sounds. Negative for: Tenderness, Distention, Peritoneal Signs, Rebound, Guarding Back: Positive for: Normal Inspection Upper Extremity: Positive for: Normal ROM Lower Extremity: Positive for: Normal ROM. Negative for: Edema Neurological: Positive for: GCS=15, Speech Normal Skin: Positive for: Warm, Dry, Normal Color. Negative for: Rashes Psychiatric: Positive for: Alert, Oriented x 3 - Medications Active Medications: Active Medications Generic Name Dose Route Start Last Admin Trade Name Freq PRN Reason Stop Dose Admin Amlodipine Besylate 10 mg 10/29/17 10:00 Norvasc PO DAILY OVI Guaifenesin 100 mg 10/28/17 14:26 Robitussin PO Q4H PRN Cough Pantoprazole Sodium 40 mg 10/28/17 22:00 10/28/17 23:52 Protonix Inj IVP 40 mg Q12 OVI Administration Sodium Chloride 0 ml 10/28/17 15:00 10/29/17 06:51 [place] Nasal [place] NS 2 sprays Q8 OVI Administration - Patient Studies Lab Studies: Lab Studies 10/28/17 10/28/17 10/28/17 Range/Units 22:25 15:20 15:20 WBC 3.3 L (4.5-11.0) 10^3/ul RBC 2.87 L (3.5-6.1) 10^6/uL Hgb 5.3 L* (14.0-18.0) g/dL Hct 18.5 L* (42.0-52.0) % MCV 64.5 L D (80.0-105.0) fl MCH 18.5 L (25.0-35.0) pg MCHC 28.6 L (31.0-37.0) g/dl RDW 27.4 H (11.5-14.5) % Plt Count 219 (120.0-450.0) 10^3/uL MPV 9.1 (7.0-11.0) fl Urine Color (YELLOW) Urine Appearance (CLEAR) Urine pH (4.7-8.0) Ur Specific [place] (1.005-1.035) Urine Protein (<30 mg/dL) mg/dL Urine Glucose (UA) (NEGATIVE) mg/dL Urine Ketones (NEGATIVE) mg/dL Urine Blood (NEGATIVE) Urine Nitrate (NEGATIVE) Urine Bilirubin (NEGATIVE) Urine Urobilinogen (<1 E.U./dL) E.U./dL Ur Leukocyte Esterase (NEGATIVE) Dorie/uL Urine Opiates Screen Negative (NEGATIVE) Urine Methadone Screen Negative (NEGATIVE) Ur Barbiturates Screen Negative (NEGATIVE) Ur Phencyclidine Scrn Negative (NEGATIVE) Ur Amphetamines Screen Negative (NEGATIVE) U Benzodiazepines Scrn Negative (NEGATIVE) U Oth Cocaine Metabols Positive H (NEGATIVE) U Cannabinoids Screen Negative (NEGATIVE) Influenza Typ A,B (EIA) Negative for flu a/b (NEGATIVE) 10/28/17 Range/Units 13:00 WBC (4.5-11.0) 10^3/ul RBC (3.5-6.1) 10^6/uL Hgb (14.0-18.0) g/dL Hct (42.0-52.0) % MCV (80.0-105.0) fl MCH (25.0-35.0) pg MCHC (31.0-37.0) g/dl RDW (11.5-14.5) % Plt Count (120.0-450.0) 10^3/uL MPV (7.0-11.0) fl Urine Color Yellow (YELLOW) Urine Appearance Clear (CLEAR) Urine pH 6.0 (4.7-8.0) Ur Specific [place] 1.015 (1.005-1.035) Urine Protein Negative (<30 mg/dL) mg/dL Urine Glucose (UA) Negative (NEGATIVE) mg/dL Urine Ketones Negative (NEGATIVE) mg/dL Urine Blood Negative (NEGATIVE) Urine Nitrate Negative (NEGATIVE) Urine Bilirubin Negative (NEGATIVE) Urine Urobilinogen 1.0 H (<1 E.U./dL) E.U./dL Ur Leukocyte Esterase Negative (NEGATIVE) Dorie/uL Urine Opiates Screen (NEGATIVE) Urine Methadone Screen (NEGATIVE) Ur Barbiturates Screen (NEGATIVE) Ur Phencyclidine Scrn (NEGATIVE) Ur Amphetamines Screen (NEGATIVE) U Benzodiazepines Scrn (NEGATIVE) U Oth Cocaine Metabols (NEGATIVE) U Cannabinoids Screen (NEGATIVE) Influenza Typ A,B (EIA) (NEGATIVE) Laboratory Results - last 24 hr 10/28/17 10/28/17 10/28/17 13:00 15:20 15:20 WBC RBC Hgb Hct MCV MCH MCHC RDW Plt Count MPV Urine Color Yellow Urine Appearance Clear Urine pH 6.0 Ur Specific [place] 1.015 Urine Protein Negative Urine Glucose (UA) Negative Urine Ketones Negative Urine Blood Negative Urine Nitrate Negative Urine Bilirubin Negative Urine Urobilinogen 1.0 H Ur Leukocyte Esterase Negative Urine Opiates Screen Negative Urine Methadone Screen Negative Ur Barbiturates Screen Negative Ur Phencyclidine Scrn Negative Ur Amphetamines Screen Negative U Benzodiazepines Scrn Negative U Oth Cocaine Metabols Positive H U Cannabinoids Screen Negative Influenza Typ A,B (EIA) Negative for flu a/b 10/28/17 22:25 WBC 3.3 L RBC 2.87 L Hgb 5.3 L* Hct 18.5 L* MCV 64.5 L D MCH 18.5 L MCHC 28.6 L RDW 27.4 H Plt Count 219 MPV 9.1 Urine Color Urine Appearance Urine pH Ur Specific [place] Urine Protein Urine Glucose (UA) Urine Ketones Urine Blood Urine Nitrate Urine Bilirubin Urine Urobilinogen Ur Leukocyte Esterase Urine Opiates Screen Urine Methadone Screen Ur Barbiturates Screen Ur Phencyclidine Scrn Ur Amphetamines Screen U Benzodiazepines Scrn U Oth Cocaine Metabols U Cannabinoids Screen Influenza Typ A,B (EIA) Results Reviewed to Date: Yes Critical Care Progress Note - Prophylaxis GI Prophylaxis GI: PPI - Prophylaxis DVT Prophylaxis DVT: SCDs - Nutrition Nutrition: Nutrition Category Date Time Status NPO Diet [DIET] Diets 10/29/17 Breakfast Ordered Assessment/Plan - Assessment and Plan (Free Text) Assessment: Patient is a 56 y/o Male with PMHx of htn, chronic anemia requiring transfusions in the past who presented with worsening shortness of breath and chest pain for 2 weeks, was found to have anemia with hgb of 3.5. Patient received 3 units of prbc overnight, this AM hgb if 6.1. Patient to go for EGD later on today. Plan: Neuro: stable at baseline Pulm: stable at baseline Nasal cannula prn to maintain O2 sat above 90%. Cough- chest x-ray normal, robittusin prn. Cardiology: CP and sob likely due to severe anemia- cp and sob resolved. patient is hemodynamically stable Keep map above 65 h/o htn- on po Norvasc echo ordered Heme: acute on chronic anemia likely due to GI losses, h/o duodenal angiodysplasia/gastritis and ulcer. - NPO for EGD today at 1pm - CT abdomen and pelvis with no significant finding - Patient continued to be hemodynamically stable, no tachycardia, no AMS, cp and sob resolved. - Transfuse 1 more unit of prbc and continue to monitor h/h ID: low sepsis probability, will continue to monitor Renal: stable, will continue to monitor GI: clear liquid diet. ppi 40 q12 ivp. Endo: maintain euglycemia DVT prophylaxis: compressive devices. Dispo- Patient is hemodynamically stable, no tachycardia, no hypotension, no cp or sob, no AMS. Patient can be transferred to tele, pending egd later on today. Patient seen, and examined with attending. - Date & Time Date: 10/29/17 Time: 11:00 <Oneil Weber - Last Filed: 10/29/17 12:09> CCU Objective - Vital Signs / Intake & Output Vital Signs (Last 4 hours): Vital Signs Temp Pulse Resp BP Pulse Ox 10/29/17 11:42 98.5 F 71 16 143/85 10/29/17 10:36 98.4 F 83 16 129/74 100 10/29/17 09:50 143/69 10/29/17 09:36 98.4 F 71 16 138/75 100 10/29/17 09:17 98.5 F 76 18 141/65 10/29/17 08:34 98.0 F 76 17 137/62 99 Intake and Output (Last 8hrs): Intake & Output 10/28/17 10/29/17 10/29/17 22:59 06:59 14:59 Intake Total 650 280 325 Balance 650 280 325 Weight 187 lb Intake: Blood Product 650 280 325 Apheresis Rbc Cp2d As3 Lr 280 2nd Unit [id number] Red Blood Cells Cpd As1 325 Lr Unit [id number] Red Blood Cells Cpd As1 325 Lr Unit [id number] Red Blood Cells Cpd As1 325 Lr Unit [id number] Other: Voiding Method Urinal - Medications Active Medications: Active Medications Generic Name Dose Route Start Last Admin Trade Name Freq PRN Reason Stop Dose Admin Amlodipine Besylate 10 mg 10/29/17 10:00 10/29/17 09:50 Norvasc PO 10 mg DAILY OVI Administration Guaifenesin 100 mg 10/28/17 14:26 Robitussin PO Q4H PRN Cough Pantoprazole Sodium 40 mg 10/28/17 22:00 10/29/17 10:27 Protonix Inj IVP 40 mg Q12 OVI Administration Sodium Chloride 0 ml 10/28/17 15:00 10/29/17 06:51 [place] Nasal [place] NS 2 sprays Q8 OVI Administration - Patient Studies Lab Studies: Lab Studies 10/29/17 10/29/17 10/28/17 Range/Units 06:30 06:30 22:25 WBC 3.2 L 3.3 L (4.5-11.0) 10^3/ul RBC 3.17 L 2.87 L (3.5-6.1) 10^6/uL Hgb 6.2 L* 5.3 L* (14.0-18.0) g/dL Hct 20.7 L* 18.5 L* (42.0-52.0) % MCV 65.3 L 64.5 L D (80.0-105.0) fl MCH 19.6 L 18.5 L (25.0-35.0) pg MCHC 30.0 L 28.6 L (31.0-37.0) g/dl RDW 27.7 H 27.4 H (11.5-14.5) % Plt Count 230 219 (120.0-450.0) 10^3/uL MPV 9.3 9.1 (7.0-11.0) fl Sodium 140 (132-148) mmol/L Potassium 4.2 (3.6-5.0) mmol/L Chloride 109 H (98-107) mmol/L Carbon Dioxide 21 (21-33) mmol/L Anion Gap 14 (10-20) BUN 11 (7-21) mg/dL Creatinine 1.0 (0.8-1.5) mg/dl Est GFR ( Amer) > 60 Est GFR (Non-Af Amer) > 60 Random Glucose 93 (70-110) mg/dL Calcium 9.0 (8.4-10.5) mg/dL Total Bilirubin 1.4 H (0.2-1.3) mg/dL AST 43 (17-59) U/L ALT 35 (7-56) U/L Alkaline Phosphatase 78 (38-126) U/L Total Protein 6.6 (5.8-8.3) g/dL Albumin 3.4 (3.0-4.8) g/dL Globulin 3.1 gm/dL Albumin/Globulin Ratio 1.1 (1.1-1.8) Urine Color (YELLOW) Urine Appearance (CLEAR) Urine pH (4.7-8.0) Ur Specific [place] (1.005-1.035) Urine Protein (<30 mg/dL) mg/dL Urine Glucose (UA) (NEGATIVE) mg/dL Urine Ketones (NEGATIVE) mg/dL Urine Blood (NEGATIVE) Urine Nitrate (NEGATIVE) Urine Bilirubin (NEGATIVE) Urine Urobilinogen (<1 E.U./dL) E.U./dL Ur Leukocyte Esterase (NEGATIVE) Dorie/uL Urine Opiates Screen (NEGATIVE) Urine Methadone Screen (NEGATIVE) Ur Barbiturates Screen (NEGATIVE) Ur Phencyclidine Scrn (NEGATIVE) Ur Amphetamines Screen (NEGATIVE) U Benzodiazepines Scrn (NEGATIVE) U Oth Cocaine Metabols (NEGATIVE) U Cannabinoids Screen (NEGATIVE) Influenza Typ A,B (EIA) (NEGATIVE) 10/28/17 10/28/17 10/28/17 Range/Units 15:20 15:20 13:00 WBC (4.5-11.0) 10^3/ul RBC (3.5-6.1) 10^6/uL Hgb (14.0-18.0) g/dL Hct (42.0-52.0) % MCV (80.0-105.0) fl MCH (25.0-35.0) pg MCHC (31.0-37.0) g/dl RDW (11.5-14.5) % Plt Count (120.0-450.0) 10^3/uL MPV (7.0-11.0) fl Sodium (132-148) mmol/L Potassium (3.6-5.0) mmol/L Chloride (98-107) mmol/L Carbon Dioxide (21-33) mmol/L Anion Gap (10-20) BUN (7-21) mg/dL Creatinine (0.8-1.5) mg/dl Est GFR ( Amer) Est GFR (Non-Af Amer) Random Glucose (70-110) mg/dL Calcium (8.4-10.5) mg/dL Total Bilirubin (0.2-1.3) mg/dL AST (17-59) U/L ALT (7-56) U/L Alkaline Phosphatase (38-126) U/L Total Protein (5.8-8.3) g/dL Albumin (3.0-4.8) g/dL Globulin gm/dL Albumin/Globulin Ratio (1.1-1.8) Urine Color Yellow (YELLOW) Urine Appearance Clear (CLEAR) Urine pH 6.0 (4.7-8.0) Ur Specific [place] 1.015 (1.005-1.035) Urine Protein Negative (<30 mg/dL) mg/dL Urine Glucose (UA) Negative (NEGATIVE) mg/dL Urine Ketones Negative (NEGATIVE) mg/dL Urine Blood Negative (NEGATIVE) Urine Nitrate Negative (NEGATIVE) Urine Bilirubin Negative (NEGATIVE) Urine Urobilinogen 1.0 H (<1 E.U./dL) E.U./dL Ur Leukocyte Esterase Negative (NEGATIVE) Dorie/uL Urine Opiates Screen Negative (NEGATIVE) Urine Methadone Screen Negative (NEGATIVE) Ur Barbiturates Screen Negative (NEGATIVE) Ur Phencyclidine Scrn Negative (NEGATIVE) Ur Amphetamines Screen Negative (NEGATIVE) U Benzodiazepines Scrn Negative (NEGATIVE) U Oth Cocaine Metabols Positive H (NEGATIVE) U Cannabinoids Screen Negative (NEGATIVE) Influenza Typ A,B (EIA) Negative for flu a/b (NEGATIVE) Laboratory Results - last 24 hr 10/28/17 10/28/17 10/28/17 13:00 15:20 15:20 WBC RBC Hgb Hct MCV MCH MCHC RDW Plt Count MPV Sodium Potassium Chloride Carbon Dioxide Anion Gap BUN Creatinine Est GFR ( Amer) Est GFR (Non-Af Amer) Random Glucose Calcium Total Bilirubin AST ALT Alkaline Phosphatase Total Protein Albumin Globulin Albumin/Globulin Ratio Urine Color Yellow Urine Appearance Clear Urine pH 6.0 Ur Specific [place] 1.015 Urine Protein Negative Urine Glucose (UA) Negative Urine Ketones Negative Urine Blood Negative Urine Nitrate Negative Urine Bilirubin Negative Urine Urobilinogen 1.0 H Ur Leukocyte Esterase Negative Urine Opiates Screen Negative Urine Methadone Screen Negative Ur Barbiturates Screen Negative Ur Phencyclidine Scrn Negative Ur Amphetamines Screen Negative U Benzodiazepines Scrn Negative U Oth Cocaine Metabols Positive H U Cannabinoids Screen Negative Influenza Typ A,B (EIA) Negative for flu a/b 10/28/17 10/29/17 10/29/17 22:25 06:30 06:30 WBC 3.3 L 3.2 L RBC 2.87 L 3.17 L Hgb 5.3 L* 6.2 L* Hct 18.5 L* 20.7 L* MCV 64.5 L D 65.3 L MCH 18.5 L 19.6 L MCHC 28.6 L 30.0 L RDW 27.4 H 27.7 H Plt Count 219 230 MPV 9.1 9.3 Sodium 140 Potassium 4.2 Chloride 109 H Carbon Dioxide 21 Anion Gap 14 BUN 11 Creatinine 1.0 Est GFR ( Amer) > 60 Est GFR (Non-Af Amer) > 60 Random Glucose 93 Calcium 9.0 Total Bilirubin 1.4 H AST 43 ALT 35 Alkaline Phosphatase 78 Total Protein 6.6 Albumin 3.4 Globulin 3.1 Albumin/Globulin Ratio 1.1 Urine Color Urine Appearance Urine pH Ur Specific [place] Urine Protein Urine Glucose (UA) Urine Ketones Urine Blood Urine Nitrate Urine Bilirubin Urine Urobilinogen Ur Leukocyte Esterase Urine Opiates Screen Urine Methadone Screen Ur Barbiturates Screen Ur Phencyclidine Scrn Ur Amphetamines Screen U Benzodiazepines Scrn U Oth Cocaine Metabols U Cannabinoids Screen Influenza Typ A,B (EIA) Critical Care Progress Note - Nutrition Nutrition: Nutrition Category Date Time Status NPO Diet [DIET] Diets 10/29/17 Breakfast Ordered Assessment/Plan - Assessment and Plan (Free Text) Plan: Patient seen and examined with resident, agree with note with foollowing additions/exceptions: Patient is 56yo male with PMhx of cocaine abuse, UGIB, chronic anemia, requiring blood transfusions, presents with SOB and CP, found to have Hgb 3.4. Denied fever, chills, cough, palpitations, MARSHALL, dizziness, melena, BRBPR. Currently afebrile, HD stable, comfortable in NAD, benign abd exam, received 3 unit of pRBC, repeat HH 6.2, responded appropriately. Pt to receive 1 more unit of PRBC, scheduled for EGD today. STABLE, transfer to telemetry
[2017-10-29 07:27] LABS: HEMOGLOBIN 6.2 g/dL (14.0-18.0)
[2017-10-29 08:20] LABS: ALB/GLOB RATIO 1.1 (1.1-1.8); ALBUMIN 3.4 g/dL (3.0-4.8); ALT/SGPT 35 U/L (7-56); AST/SGOT 43 U/L (17-59); BLOOD UREA NITROGEN 11 mg/dL (7-21); GFR AFRICAN-AMERICAN > 60; GFR NON-AFRICAN AMERICAN > 60
[2017-10-29] MEDS ORDERED: Propofol 10 mg/ml Inj (20 ML) ONE ×6 (13:14→13:49)
[2017-10-29] MEDS ORDERED: EPINEPHrine 1 mg/ml (1:1000) Inj IV ONE (13:40)
--- NOTE | 2017-10-29 16:19 | CP.PCM.PN ---
<Alex Farmer - Last Filed: 10/30/17 06:05> Subjective - Date & Time of Evaluation Date of Evaluation: 10/29/17 Time of Evaluation: 16:16 - Subjective Subjective: Patient seen and examined at bedside in no acute distress. Patient has no complaints at this time. Denies shortness of breath, abdominal pain, chest pain , headache, nausea, vomiting, diarrhea. Objective - Vital Signs/Intake and Output Vital Signs (last 24 hours): Temp Pulse Resp BP Pulse Ox 98 F 73 24 112/50 L 96 10/29/17 14:42 10/29/17 14:42 10/29/17 14:42 10/29/17 14:42 10/29/17 14:42 Intake and Output: 10/29/17 10/29/17 06:59 18:59 Intake Total 605 325 Balance 605 325 - Medications Medications: Current Medications Amlodipine Besylate (Norvasc) 10 mg PO DAILY [facility] Last Admin: 10/29/17 09:50 Dose: 10 mg Guaifenesin (Robitussin) 100 mg PO Q4H PRN PRN Reason: Cough Sodium Chloride (Sodium Chloride 0.9%) 1,000 mls @ 100 mls/hr IV .Q10H [facility] Pantoprazole Sodium (Protonix Inj) 40 mg IVP Q12 [facility] Last Admin: 10/29/17 10:27 Dose: 40 mg Sodium Chloride ([place] Nasal [place]) 0 ml NS Q8 [facility] Last Admin: 10/29/17 06:51 Dose: 2 sprays - Labs Labs: 10/29/17 06:30 10/29/17 06:30 PT 13.9 SECONDS (9.4-12.5) H 10/28/17 10:21 INR 1.20 (0.93-1.08) H 10/28/17 10:21 APTT 50.5 Seconds (25.1-36.5) H 10/28/17 10:21 - Constitutional Appears: Non-toxic, No Acute Distress - Head Exam Head Exam: ATRAUMATIC, NORMAL INSPECTION, NORMOCEPHALIC - Eye Exam Eye Exam: EOMI, Normal appearance - ENT Exam ENT Exam: Mucous Membranes Moist, Normal Exam - Neck Exam Neck Exam: Normal Inspection - Respiratory Exam Respiratory Exam: Accessory Muscle Use, NORMAL BREATHING PATTERN. 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 Pt has a cold 2 weeks ago with cough and congestion. In ED, Hb 3.5 (baseline 8-10). MCV 57.6. INR 1.2. APTT 50.5. Heme occult for stool positive. Plan: Anemia, Acute on chronic, suspect GI source - protonix 40 PO bid - EGD reveals GI bleed is due to angiodysplasia in duodenum. Tonight continue with tonio rliqui diet, tomorrow full liquid diet. follow up with cbc 1-2 months. After discharge from hospital follow up with Dr Mata [phone] Ny [phone] at [facility] in 102 months for enteroscopy - Iron studies ordered; reveals iron deficiency anemia - CT abdomen and pelvis with PO contrast; No definite evidence of malignancy or metastatic disease on this unenhanced exam. Lung bases findings suspicious for mild chronic pulmonary interstitial fibrosis. Cardiomegaly. Punctate, nonobstructing left renal stone. No evidence of hydroureteronephrosis - Echocardiogram to assess anemia effect on heart still not done, will call echo and request to be read Viral upper respiratory illness - continue ocean spray and guifenacin Hx HTN -on home norvasc FEN - Heart health diet Consult - GI = Dr Lee DVT prophylaxis: SCD GI prophylaxis:Will ask Dr. Lee regarding carafate to coat ulcer Case reviewed and discussed with Dr. Leos <Jesus Leos B - Last Filed: 10/30/17 15:12> Objective - Vital Signs/Intake and Output Vital Signs (last 24 hours): Temp Pulse Resp BP Pulse Ox 98.5 F 69 18 132/58 L 100 10/30/17 12:00 10/30/17 12:00 10/30/17 12:00 10/30/17 12:00 10/30/17 12:00 Intake and Output: 10/30/17 10/30/17 06:59 18:59 Intake Total 540 480 Balance 540 480 - Labs Labs: 10/30/17 06:30 10/30/17 06:30 PT 13.9 SECONDS (9.4-12.5) H 10/28/17 10:21 INR 1.20 (0.93-1.08) H 10/28/17 10:21 APTT 50.5 Seconds (25.1-36.5) H 10/28/17 10:21 Attending/Attestation - Attestation I have personally seen and examined this patient.: Yes I have fully participated in the care of the patient.: Yes I have reviewed all pertinent clinical information, including history, physical exam and plan: Yes Notes (Text): I have seen and examined the patient at bedside. Agree with the above note with the following additions/ exceptions: Briefly this is 56 year old male with history of cocaine abuse, asthma, AVM's in duodenum, chronic anemia, erosive gastropathy, alcohol abuse, HTN, non obstructing schatzki ring who was admitted for symptomatic anemia. Upon admission, Hb was found to be 3.5. His baseline is usually 8-10. MCV is microcytic most likely iron deficiency. FOBT positive. Anemia work up revealed iron deficiency. He was given 4 units of prbc. GI consult appreciated. CT abdomen/ pelvis revealed no evidence of malignancy. EGD reveals GI bleed is due to angiodysplasia in duodenum. Continue clear liquid diet. Will start iron tomorrow. Echo pending. Patient will be closely monitored. Patient denies any melena, hemoptysis, hematemesis, hematuria or epistaxis. He has pica for ice. Upon discharge patient will follow up with Dr Marie. Dr Jesus Leos
[2017-10-29] MEDS: Sodium Chloride 0.9% 1,000 ML IV SCH (16:44)
--- NOTE | 2017-10-29 17:23 | CON ---
DATE: 10/29/2017 HISTORY OF PRESENT ILLNESS: I saw Mr. Mendez this morning. He is a 56-year-old black male with past medical history of anemia, admitted for symptoms of severe shortness of breath and dyspnea. The patient was found to have a low hemoglobin in the emergency room. Discussion with the patient at the bedside indicated no symptoms of severe acid reflux, dysphagia, abdominal pain, hematemesis, or rectal bleeding. The patient does not follow antireflux precautions, and eats and drinks at bedtime and during sleep on a daily basis. The patient has taken aspirin in the past and recently started doses of Aleve for complaints of joint pain. Therefore, he has been taking both aspirin and Aleve on a frequent basis. PAST MEDICAL HISTORY: The patient's only medical history is significant for asthma and hypertension. PHYSICAL EXAMINATION: VITAL SIGNS: I reviewed this patient's vital signs. HEENT: Noncontributory. LUNGS: Decreased breath sounds, basilar. HEART: Irregular rhythm. ABDOMEN: Soft. No tenderness elicited. LABORATORY DATA: The patient's laboratory indicates white count of 3.3 with H and H of 3.4 and 14, platelet count of 264. The patient was transfused yesterday. His INR is within normal limits. Chemistry indicates transferrin of 430 with an iron level of 11, TIBC 498, transferrin again 430.31. Glucose 153. Urine noncontributory. Evaluation of the abdominopelvic CT scan significant for no evidence of malignancy or metastatic disease. Does have some findings in the lung bases suggestive of interstitial fibrosis. Does have mild cardiomegaly. Evaluation of bowel is noncontributory. ASSESSMENT: This is a 56-year-old black male with history of asthma, hypertension, and anemia. The patient was previously evaluated at [facility] about a year ago for a similar problem. At that particular time, the patient had a small Schatzki ring with a small hiatal hernia. He also had evidence of gastric ulcer, nonbleeding erosive gastropathy and several angiodysplasia-type lesions in the small bowel, treated with Argon. Apparently, the angiodysplasias were bleeding at that particular time point. I reviewed the issue of an endoscopy with the patient. If possible, if Anesthesia is available and schedule permits, the upper endoscopy may be performed today; however, if not tomorrow. I discussed this with the ER nursing staff. Patient at the current time point will be transferred to ICU, transfuse. The orders appear adequate. Trenton Lee DO< PhD EDD
[2017-10-30] MEDS: Sodium Chloride 0.9% 1,000 ML IV SCH ×2 (00:36→10:20)
[2017-10-30 05:32] VITALS: RESP 18
[2017-10-30 07:20] LABS: BASO # 0.06 K/mm3 (0.0-2.0); BASO % 1.3 % (0.0-3.0); EOS # 0.2 (0.0-0.7); EOS % 3.2 % (1.5-5.0); GRAN # 2.53 (1.4-6.5); GRAN % 53.8 % (50.0-68.0); HEMOGLOBIN 7.5 g/dL (14.0-18.0); LYMPH # 1.3 (1.2-3.4); LYMPH % 28.3 % (22.0-35.0); MEAN CELL VOLUME 67.8 fl (80.0-105.0); MEAN CORPUSCULAR HEMOGLOBIN 20.5 pg (25.0-35.0); MEAN CORPUSCULAR HGB CONC 30.2 g/dl (31.0-37.0); MEAN PLATELET VOLUME 9.9 fl (7.0-11.0); MONO # 0.6 (0.1-0.6); MONO % 13.4 % (1.0-6.0); RBC 3.66 10^6/uL (3.5-6.1); RED CELL DISTRIBUTION WIDTH 29.2 % (11.5-14.5); WHITE BLOOD COUNT 4.7 10^3/ul (4.5-11.0)
[2017-10-30 07:50] LABS: ALB/GLOB RATIO 1.1 (1.1-1.8); ALBUMIN 3.5 g/dL (3.0-4.8); ALT/SGPT 40 U/L (7-56); AST/SGOT 46 U/L (17-59); BLOOD UREA NITROGEN 8 mg/dL (7-21); CALCIUM 8.9 mg/dL (8.4-10.5); GFR AFRICAN-AMERICAN > 60; GFR NON-AFRICAN AMERICAN > 60
--- NOTE | 2017-10-30 10:18 | PN ---
DATE: 10/30/2017 SUBJECTIVE: I saw Mr. Mendez this morning. He is a 56-year-old black male admitted yesterday with severe shortness of breath and dyspnea without evidence of any hematemesis or rectal bleeding, but was found to have severe anemia - hemoglobin of roughly 3.5. The patient had an endoscopic procedure yesterday to the distal portion of the second portion of the duodenum and found to have multiple bleeding angiodysplasias. This was treated with APC successfully. PHYSICAL EXAMINATION VITAL SIGNS: I reviewed this patient's vital signs. HEENT: Noncontributory. LUNGS: Clear to auscultation. HEART: Regular rhythm. ABDOMEN: Soft. No tenderness elicited. LABORATORY DATA: Pending for this morning. OVERALL ASSESSMENT: A 56-year-old black male admitted with severe dyspnea, shortness of breath, and found to have angiodysplasias in the second portion of the duodenum. Note that endoscopically, the lesions treated yesterday were nearly at the limit of scope insertion level. As indicated in my note dictated yesterday, treatment options for this patient include possibly either a balloon enteroscopy or capsule endoscopy to delineate the actual extent and location of these angiodysplasias. He does have very small angiodysplasias, beyond the limit of insertion of the scope noted yesterday, most likely these will stay the same or increase in size over the next year or so. Which will predispose another anemia type of scenario. Therefore, further endoscopic evaluation is warranted in the very near future. I reviewed this case with the nursing/resident staff in detail yesterday. Possible options will include evaluation by a GI person that accepts his insurance in a [facility] or evaluation at a [facility] Facility like the [facility].. Therapeutic options, for example, hormones sometimes will work in these particular cases; however, endoscopic treatment modalities usually tend to be the most effective. I reviewed dietary issues with this patient. Yesterday, the patient was placed on clear liquids. Today, we will advance to full liquids with possible discharge sometime later on today as per hospital staff discretion. I reviewed all of this information with the patient at bedside this morning, including giving him a copy of his endoscopic procedure. Trenton Lee DO, PhD MTDAndrew
[2017-10-30 12:10] VITALS: BP 132/58; PULSE 69; TEMP 98.5
[2017-10-30 12:36] VITALS: O2SAT 100
[2017-10-30] MEDS ORDERED: POLYETHYLENE GLYCOL 3350 17 GM/Dose PACKET PO SCH (13:00)
--- NOTE | 2017-10-30 14:45 | CP.PCM.DIS ---
<Paloma Kumar - Last Filed: 10/30/17 14:41> Provider - Provider Date of Admission: 10/28/17 12:09 Attending physician: Jesus Leos MD Primary care physician: Dr Huff Time Spent in preparation of Discharge (in minutes): 45 Diagnosis - Discharge Diagnosis (1) GI bleed Status: Acute (2) Microcytic hypochromic anemia Status: Acute (3) Angiodysplasia of duodenum Status: Acute Hospital Course - Lab Results Lab Results: Most Recent Lab Values WBC 4.7 10^3/ul (4.5-11.0) D 10/30/17 06:30 RBC 3.66 10^6/uL (3.5-6.1) 10/30/17 06:30 Hgb 7.5 g/dL (14.0-18.0) L 10/30/17 06:30 Hct 24.8 % (42.0-52.0) L 10/30/17 06:30 MCV 67.8 fl (80.0-105.0) L 10/30/17 06:30 MCH 20.5 pg (25.0-35.0) L 10/30/17 06:30 MCHC 30.2 g/dl (31.0-37.0) L 10/30/17 06:30 RDW 29.2 % (11.5-14.5) H 10/30/17 06:30 Plt Count 232 10^3/uL (120.0-450.0) 10/30/17 06:30 MPV 9.9 fl (7.0-11.0) 10/30/17 06:30 Gran % 53.8 % (50.0-68.0) 10/30/17 06:30 Lymph % (Auto) 28.3 % (22.0-35.0) 10/30/17 06:30 Turner % (Auto) 13.4 % (1.0-6.0) H 10/30/17 06:30 Eos % (Auto) 3.2 % (1.5-5.0) 10/30/17 06:30 Baso % (Auto) 1.3 % (0.0-3.0) 10/30/17 06:30 Gran # 2.53 (1.4-6.5) 10/30/17 06:30 Lymph # (Auto) 1.3 (1.2-3.4) 10/30/17 06:30 Turner # (Auto) 0.6 (0.1-0.6) 10/30/17 06:30 Eos # (Auto) 0.2 (0.0-0.7) 10/30/17 06:30 Baso # (Auto) 0.06 K/mm3 (0.0-2.0) 10/30/17 06:30 Retic Count 1.46 % (0.5-1.5) 10/28/17 10:21 PT 13.9 SECONDS (9.4-12.5) H 10/28/17 10:21 INR 1.20 (0.93-1.08) H 10/28/17 10:21 APTT 50.5 Seconds (25.1-36.5) H 10/28/17 10:21 Sodium 142 mmol/L (132-148) 10/30/17 06:30 Potassium 3.9 mmol/L (3.6-5.0) 10/30/17 06:30 Chloride 109 mmol/L (98-107) H 10/30/17 06:30 Carbon Dioxide 22 mmol/L (21-33) 10/30/17 06:30 Anion Gap 14 (10-20) 10/30/17 06:30 BUN 8 mg/dL (7-21) 10/30/17 06:30 Creatinine 1.1 mg/dl (0.8-1.5) 10/30/17 06:30 Est GFR ( Amer) > 60 10/30/17 06:30 Est GFR (Non-Af Amer) > 60 10/30/17 06:30 POC Glucose (mg/dL) 108 mg/dL (65-110) 10/30/17 07:27 Random Glucose 100 mg/dL (70-110) 10/30/17 06:30 Calcium 8.9 mg/dL (8.4-10.5) 10/30/17 06:30 Iron 11 ug/dL (45-180) L 10/28/17 10:21 TIBC 498 ug/dL (261-462) H 10/28/17 10:21 % Saturation 2 % (20-55) L 10/28/17 10:21 Transferrin 430.31 mg/dL (206-381) H 10/28/17 10:21 Ferritin 3.9 ng/mL 10/28/17 10:21 Total Bilirubin 0.9 mg/dL (0.2-1.3) 10/30/17 06:30 AST 46 U/L (17-59) 10/30/17 06:30 ALT 40 U/L (7-56) 10/30/17 06:30 Alkaline Phosphatase 89 U/L (38-126) 10/30/17 06:30 Lactate Dehydrogenase 637 U/L (333-699) 10/28/17 10:21 Total Creatine Kinase 250 U/L (35-230) H 10/28/17 10:21 CK-MB (CK-2) 0.9 ng/mL (0.0-3.6) 10/28/17 10:21 CK-MB (CK-2) % Cancelled 10/28/17 10:21 Troponin I < 0.01 ng/mL 10/28/17 10:21 NT-Pro-B Natriuret Pep 327 pg/mL (0-450) 10/28/17 10:21 Total Protein 6.8 g/dL (5.8-8.3) 10/30/17 06:30 Albumin 3.5 g/dL (3.0-4.8) 10/30/17 06:30 Globulin 3.3 gm/dL 10/30/17 06:30 Albumin/Globulin Ratio 1.1 (1.1-1.8) 10/30/17 06:30 Vitamin B12 369 pg/mL (239-931) 10/28/17 10:21 Folate 17.4 ng/mL 10/28/17 10:21 Urine Color Yellow (YELLOW) 10/28/17 13:00 Urine Appearance Clear (CLEAR) 10/28/17 13:00 Urine pH 6.0 (4.7-8.0) 10/28/17 13:00 Ur Specific [place] 1.015 (1.005-1.035) 10/28/17 13:00 Urine Protein Negative mg/dL (<30 mg/dL) 10/28/17 13:00 Urine Glucose (UA) Negative mg/dL (NEGATIVE) 10/28/17 13:00 Urine Ketones Negative mg/dL (NEGATIVE) 10/28/17 13:00 Urine Blood Negative (NEGATIVE) 10/28/17 13:00 Urine Nitrate Negative (NEGATIVE) 10/28/17 13:00 Urine Bilirubin Negative (NEGATIVE) 10/28/17 13:00 Urine Urobilinogen 1.0 E.U./dL (<1 E.U./dL) H 10/28/17 13:00 Ur Leukocyte Esterase Negative Dorie/uL (NEGATIVE) 10/28/17 13:00 Urine Opiates Screen Negative (NEGATIVE) 10/28/17 15:20 Urine Methadone Screen Negative (NEGATIVE) 10/28/17 15:20 Ur Barbiturates Screen Negative (NEGATIVE) 10/28/17 15:20 Ur Phencyclidine Scrn Negative (NEGATIVE) 10/28/17 15:20 Ur Amphetamines Screen Negative (NEGATIVE) 10/28/17 15:20 U Benzodiazepines Scrn Negative (NEGATIVE) 10/28/17 15:20 U Oth Cocaine Metabols Positive (NEGATIVE) H 10/28/17 15:20 U Cannabinoids Screen Negative (NEGATIVE) 10/28/17 15:20 Influenza Typ A,B (EIA) Negative for flu a/b (NEGATIVE) 10/28/17 15:20 Blood Type O POSITIVE 10/28/17 10:00 Antibody Screen Negative 10/28/17 10:00 Crossmatch See Detail 10/28/17 10:00 BBK History Checked Patient has bt 10/28/17 10:00 - Hospital Course Hospital Course: PGY-[address] Leos Mr Tu Mendez, 56 M, former smoker, current cocain user, with PMHx asthma, Hx GI bleed last year s/p APC due to angiodysplastic in duodenum, and chronic anemia complained of one-week history of dyspnea on exertion, dizziness, and generalized weakness. In ED, Hb 3.5 (baseline 8-10). MCV 57.6. INR 1.2. APTT 50.5. Heme occult for stool positive. CT abdomen and pelvis with PO contrast showed No definite evidence of malignancy or metastatic disease. Lung bases findings suspicious for mild chronic pulmonary interstitial fibrosis. Cardiomegaly. Punctate, nonobstructing left renal stone. No evidence of hydroureteronephrosis. Pt was admitted to ICU for close monitoring while received blood transfusion. Pt had an EGD which showed (1) Grade A esophagitis ( 2) Hiatal hernia, non-obstructing schatzki ring, moderate inflammtion in stomach with multiple small erosions in antrum, and (3) multiple angiodysplsatic lesion with stigmata of recent bleed at second part of duodenum at limit of scope insertion. 2 small lesions were treated with APC with good results. More distally eval showed extremely small angiodysplasia. Pt received 4u pRBC and Hb raised from 3.5 to 7.5, and dyspnea on exertion, dizziness, and generalized weakness resolved. Pt is treated for his cold symptoms, and received Feosol for anemia. Echocardiogram was done, pending result. Pt is stable medically and discharged home. Pt is recommended the followin. Avoid Aspirin, Alieve, or NSAIDs to prevent worsening of stomach erosions. If joint pain appears, take tylenol. Do not exceed 3g/day. 2. Take Protonix twice daily for the next 2 weeks, and then take protonix daily afterwards, for prevention of GI bleed 3. Follow up with Theatre Director at a [facility] or [facility] [place] patient's insurance: Suggestions: Gastroenterology, [facility] [phone] [facility] [address] [place] [address], [address], [place] [address] 4. Outpatient work up on angiodysplasia such as vW disease, Heydes syndrome, [id number], scleroderma, etc. s/r/d/w Dr. Leos Discharge Exam - Head Exam Head Exam: ATRAUMATIC, NORMAL INSPECTION, NORMOCEPHALIC - Eye Exam Eye Exam: EOMI, Normal appearance, PERRL Pupil Exam: NORMAL ACCOMODATION - ENT Exam ENT Exam: Mucous Membranes Moist - Neck Exam Additional comments: supple - Respiratory Exam Respiratory Exam: Clear to PA & Lateral, NORMAL BREATHING PATTERN, UNREMARKABLE - Cardiovascular Exam Cardiovascular Exam: REGULAR RHYTHM, +S1, +S2. absent: Systolic Murmur - GI/Abdominal Exam GI & Abdominal Exam: Normal Bowel Sounds, Soft. absent: Distended, Firm, Rigid - Extremities Exam Extremities exam: pedal pulses present Additional comments: No edema b/l. Negative dougherty b/l - Neurological Exam Neurological exam: Alert, Normal Gait, Oriented x3 - Psychiatric Exam Psychiatric exam: Normal Affect, Normal Mood - Skin Skin Exam: Dry, Warm Discharge Plan - Discharge Medications Prescriptions: Ferrous Sulfate [Feosol] 324 mg PO TID #60 ect guaiFENesin [Robitussin] 100 mg PO Q4H PRN #1 bottle PRN Reason: Cough Pantoprazole [Protonix EC Tab] 40 mg PO DAILY #60 ect Polyethylene Glycol 3350 [Miralax] 17 gm PO DAILY #30 packet Sodium Chloride Nasal Pitman [[facility] Cross Nasal Pitman] 0 ml NS Q8 #1 bottle - Follow Up Plan Condition: FAIR Disposition: HOME/ ROUTINE Instructions: Chest Pain (DC), Cocaine Abuse (DC), Iron Deficiency Anemia (DC) Additional Instructions: Discharge Instructions 1. Avoid Aspirin, Alieve, or NSAIDs to prevent worsening of stomach erosions. If joint pain appears, take tylenol. Do not exceed 3g/day. 2. Take Protonix twice daily for the next 2 weeks, and then take protonix daily afterwards, for prevention of GI bleed 3. Follow up with Theatre Director at a [facility] or [facility] [place] patient's insurance: Suggestions: Gastroenterology, [facility] [phone] [facility] [address] [place] [address], [address], [place] [address] Referrals: Ludwin Marie MD [Non-Staff] - <Jesus Leos - Last Filed: 10/30/17 15:23> Provider - Provider Date of Admission: 10/28/17 12:09 Attending physician: Jesus Leos MD Hospital Course - Lab Results Lab Results: Most Recent Lab Values WBC 4.7 10^3/ul (4.5-11.0) D 10/30/17 06:30 RBC 3.66 10^6/uL (3.5-6.1) 10/30/17 06:30 Hgb 7.5 g/dL (14.0-18.0) L 10/30/17 06:30 Hct 24.8 % (42.0-52.0) L 10/30/17 06:30 MCV 67.8 fl (80.0-105.0) L 10/30/17 06:30 MCH 20.5 pg (25.0-35.0) L 10/30/17 06:30 MCHC 30.2 g/dl (31.0-37.0) L 10/30/17 06:30 RDW 29.2 % (11.5-14.5) H 10/30/17 06:30 Plt Count 232 10^3/uL (120.0-450.0) 10/30/17 06:30 MPV 9.9 fl (7.0-11.0) 10/30/17 06:30 Gran % 53.8 % (50.0-68.0) 10/30/17 06:30 Lymph % (Auto) 28.3 % (22.0-35.0) 10/30/17 06:30 Turner % (Auto) 13.4 % (1.0-6.0) H 10/30/17 06:30 Eos % (Auto) 3.2 % (1.5-5.0) 10/30/17 06:30 Baso % (Auto) 1.3 % (0.0-3.0) 10/30/17 06:30 Gran # 2.53 (1.4-6.5) 10/30/17 06:30 Lymph # (Auto) 1.3 (1.2-3.4) 10/30/17 06:30 Turner # (Auto) 0.6 (0.1-0.6) 10/30/17 06:30 Eos # (Auto) 0.2 (0.0-0.7) 10/30/17 06:30 Baso # (Auto) 0.06 K/mm3 (0.0-2.0) 10/30/17 06:30 Retic Count 1.46 % (0.5-1.5) 10/28/17 10:21 PT 13.9 SECONDS (9.4-12.5) H 10/28/17 10:21 INR 1.20 (0.93-1.08) H 10/28/17 10:21 APTT 50.5 Seconds (25.1-36.5) H 10/28/17 10:21 Sodium 142 mmol/L (132-148) 10/30/17 06:30 Potassium 3.9 mmol/L (3.6-5.0) 10/30/17 06:30 Chloride 109 mmol/L (98-107) H 10/30/17 06:30 Carbon Dioxide 22 mmol/L (21-33) 10/30/17 06:30 Anion Gap 14 (10-20) 10/30/17 06:30 BUN 8 mg/dL (7-21) 10/30/17 06:30 Creatinine 1.1 mg/dl (0.8-1.5) 10/30/17 06:30 Est GFR ( Amer) > 60 10/30/17 06:30 Est GFR (Non-Af Amer) > 60 10/30/17 06:30 POC Glucose (mg/dL) 108 mg/dL (65-110) 10/30/17 07:27 Random Glucose 100 mg/dL (70-110) 10/30/17 06:30 Calcium 8.9 mg/dL (8.4-10.5) 10/30/17 06:30 Iron 11 ug/dL (45-180) L 10/28/17 10:21 TIBC 498 ug/dL (261-462) H 10/28/17 10:21 % Saturation 2 % (20-55) L 10/28/17 10:21 Transferrin 430.31 mg/dL (206-381) H 10/28/17 10:21 Ferritin 3.9 ng/mL 10/28/17 10:21 Total Bilirubin 0.9 mg/dL (0.2-1.3) 10/30/17 06:30 AST 46 U/L (17-59) 10/30/17 06:30 ALT 40 U/L (7-56) 10/30/17 06:30 Alkaline Phosphatase 89 U/L (38-126) 10/30/17 06:30 Lactate Dehydrogenase 637 U/L (333-699) 10/28/17 10:21 Total Creatine Kinase 250 U/L (35-230) H 10/28/17 10:21 CK-MB (CK-2) 0.9 ng/mL (0.0-3.6) 10/28/17 10:21 CK-MB (CK-2) % Cancelled 10/28/17 10:21 Troponin I < 0.01 ng/mL 10/28/17 10:21 NT-Pro-B Natriuret Pep 327 pg/mL (0-450) 10/28/17 10:21 Total Protein 6.8 g/dL (5.8-8.3) 10/30/17 06:30 Albumin 3.5 g/dL (3.0-4.8) 10/30/17 06:30 Globulin 3.3 gm/dL 10/30/17 06:30 Albumin/Globulin Ratio 1.1 (1.1-1.8) 10/30/17 06:30 Vitamin B12 369 pg/mL (239-931) 10/28/17 10:21 Folate 17.4 ng/mL 10/28/17 10:21 Urine Color Yellow (YELLOW) 10/28/17 13:00 Urine Appearance Clear (CLEAR) 10/28/17 13:00 Urine pH 6.0 (4.7-8.0) 10/28/17 13:00 Ur Specific [place] 1.015 (1.005-1.035) 10/28/17 13:00 Urine Protein Negative mg/dL (<30 mg/dL) 10/28/17 13:00 Urine Glucose (UA) Negative mg/dL (NEGATIVE) 10/28/17 13:00 Urine Ketones Negative mg/dL (NEGATIVE) 10/28/17 13:00 Urine Blood Negative (NEGATIVE) 10/28/17 13:00 Urine Nitrate Negative (NEGATIVE) 10/28/17 13:00 Urine Bilirubin Negative (NEGATIVE) 10/28/17 13:00 Urine Urobilinogen 1.0 E.U./dL (<1 E.U./dL) H 10/28/17 13:00 Ur Leukocyte Esterase Negative Dorie/uL (NEGATIVE) 10/28/17 13:00 Urine Opiates Screen Negative (NEGATIVE) 10/28/17 15:20 Urine Methadone Screen Negative (NEGATIVE) 10/28/17 15:20 Ur Barbiturates Screen Negative (NEGATIVE) 10/28/17 15:20 Ur Phencyclidine Scrn Negative (NEGATIVE) 10/28/17 15:20 Ur Amphetamines Screen Negative (NEGATIVE) 10/28/17 15:20 U Benzodiazepines Scrn Negative (NEGATIVE) 10/28/17 15:20 U Oth Cocaine Metabols Positive (NEGATIVE) H 10/28/17 15:20 U Cannabinoids Screen Negative (NEGATIVE) 10/28/17 15:20 Influenza Typ A,B (EIA) Negative for flu a/b (NEGATIVE) 10/28/17 15:20 Blood Type O POSITIVE 10/28/17 10:00 Antibody Screen Negative 10/28/17 10:00 Crossmatch See Detail 10/28/17 10:00 BBK History Checked Patient has bt 10/28/17 10:00 Attending/Attestation - Attestation I have personally seen and examined this patient.: Yes I have fully participated in the care of the patient.: Yes I have reviewed all pertinent clinical information, including history, physical exam and plan: Yes Notes (Text): I have seen and examined the patient at bedside. Agree with the above note with the following additions/ exceptions: Briefly this is 56 year old male with history of cocaine abuse, asthma, AVM's in duodenum, chronic anemia, erosive gastropathy, alcohol abuse, HTN, non obstructing schatzki ring who was admitted for symptomatic anemia. Upon admission, Hb was found to be 3.5. His baseline is usually 8-10. MCV is microcytic most likely iron deficiency. FOBT positive. Anemia work up revealed iron deficiency. He was given 4 units of prbc. GI consult appreciated. CT abdomen/ pelvis revealed no evidence of malignancy. EGD reveals GI bleed is due to angiodysplasia in duodenum, esophagitis and hiatal hernia. Outpatient work up for AVMs recommended. Continue full liquid diet and advance as tolerated. Will start po iron. Echo pending. Advised patient to call the hospital in 3-5 days to get the results. Patient denies any melena, hemoptysis, hematemesis, hematuria or epistaxis.He is eager to go home. Upon discharge patient will follow up with Dr Marei and gastroeneterologist for further work up. Copy of endoscopy report given to the patient. Dr Jesus Leos
[2017-10-30] MEDS ORDERED: Pantoprazole 40 mg EC Tab PO SCH (18:00)
[2017-10-30] MEDS ORDERED: Pantoprazole 20 mg EC Tab PO SCH (18:00)
--- NOTE | 2017-10-31 10:13 | CARD ---
APPROVED REPORT EXAM: Two-dimensional and M-mode echocardiogram with Doppler and color Doppler. Other Information Quality : AverageRhythm : INDICATION Chest Pain 2D DIMENSIONS Left Atrium (2D)4.5 (1.6-4.0cm)IVSd1.2 (0.7-1.1cm) LVDd5.0 (3.9-5.9cm)PWd1.2 (0.7-1.1cm) LVDs3.4 (2.5-4.0cm)FS (%) 32.2 % LVEF (%)60.0 (>50%) M-Mode DIMENSIONS Aortic Root2.95 (2.2-3.7cm)Aortic Cusp Exc.1.96 (1.5-2.0cm) Aortic Valve AoV Peak Wdnqpwas165.8cm/s Mitral Valve MV E Tvglvlvo039.3cm/sMV DECEL [id number] A Padxpqkt28.4cm/s E/A ratio1.4 TDI E/Lateral E'0.0E/Medial E'0.0 Pulmonary Valve PV Peak Lfvxxphu398.3cm/sPV Peak Grad.5mmHg Tricuspid Valve TR Peak [id number]/sRAP [id number] Peak Gr.31mmHg [id number] LEFT VENTRICLE The left ventricle is normal size. There is mild concentric left ventricular hypertrophy.. The left ventricular function is normal. The left ventricular ejection fraction is within the normal range. There is normal LV segmental wall motion. RIGHT VENTRICLE The right ventricle is normal size. ATRIA The left atrium is mildly dilated. The right atrium size is normal. The atrial septum is aneurysmal. AORTIC VALVE The aortic valve is normal in structure. MITRAL VALVE The mitral valve is normal in structure. Mitral regurgitation is mild to moderate. TRICUSPID VALVE The tricuspid valve is normal in structure. There is mild tricuspid regurgitation. PULMONIC VALVE The pulmonary valve is normal in structure. There is mild pulmonic valvular regurgitation. GREAT VESSELS The aortic root is normal in size. PERICARDIAL EFFUSION There is no pericardial effusion. <Conclusion> The left ventricle is normal size. There is mild concentric left ventricular hypertrophy.. The left ventricular function is normal. Mitral regurgitation is mild to moderate. There is mild tricuspid regurgitation. There is mild pulmonic valvular regurgitation.
[2017-10-31 11:05] LABS: HEMOGLOBIN 3.5 g/dL (14.0-18.0); MEAN CELL VOLUME 57.6 fl (80.0-105.0); MEAN CORPUSCULAR HEMOGLOBIN 14.3 pg (25.0-35.0); MEAN CORPUSCULAR HGB CONC 24.8 g/dl (31.0-37.0); RBC 2.45 10^6/uL (3.5-6.1); RED CELL DISTRIBUTION WIDTH 18.4 % (11.5-14.5); WHITE BLOOD COUNT 3.3 10^3/ul (4.5-11.0)
[2017-10-31 11:06] LABS: BASO # 0.09 K/mm3 (0.0-2.0); BASO % 2.7 % (0.0-3.0); EOS # 0.2 (0.0-0.7); EOS % 4.8 % (1.5-5.0); GRAN # 1.25 (1.4-6.5); GRAN % 37.8 % (50.0-68.0); LYMPH # 1.4 (1.2-3.4); LYMPH % 43.2 % (22.0-35.0); MEAN PLATELET VOLUME 9.5 fl (7.0-11.0); MONO # 0.4 (0.1-0.6); MONO % 11.5 % (1.0-6.0)
== END 2017-10-30 13:54 | disposition home or self-care (01) | DRG 174 ==
LOC: ED 09:31 → ERH 12:09 → 3RSO 10-29 12:16
PROVIDERS: ADMIT Hospitalist; ATTEND Hospitalist
PROC: 0D598ZZ Destruction of Duodenum, Via Natural or Artificial Opening Endoscopic (ICD-10-PCS; principal; 2017-10-29 13:15)
PROC: 3E0G8GC Introduction of Other Therapeutic Substance into Upper GI, Via Natural or Artificial Opening Endoscopic (ICD-10-PCS; 2017-10-29 13:15)
DX: K31.811 Angiodysplasia of stomach and duodenum with bleeding (principal); K22.2 Esophageal obstruction; I78.0 Hereditary hemorrhagic telangiectasia; M34.9 Systemic sclerosis, unspecified; D50.9 Iron deficiency anemia, unspecified; F14.90 Cocaine use, unspecified, uncomplicated; I11.9 Hypertensive heart disease without heart failure; E78.5 Hyperlipidemia, unspecified; J45.909 Unspecified asthma, uncomplicated; K44.9 Diaphragmatic hernia without obstruction or gangrene; K25.9 Gastric ulcer, unspecified as acute or chronic, without hemorrhage or perforation; K29.70 Gastritis, unspecified, without bleeding; K29.80 Duodenitis without bleeding; Z83.3 Family history of diabetes mellitus; Z82.49 Family history of ischemic heart disease and other diseases of the circulatory system; I51.7 Cardiomegaly; J00 Acute nasopharyngitis [common cold]; K21.0 Gastro-esophageal reflux disease with esophagitis; K31.9 Disease of stomach and duodenum, unspecified; K64.9 Unspecified hemorrhoids; N20.0 Calculus of kidney; Z79.82 Long term (current) use of aspirin; F17.210 Nicotine dependence, cigarettes, uncomplicated